=== PATIENT | female | born 1940 | race Caucasian/White ===

== ENCOUNTER → 2018-01-04 12:53 | Outpatient (CLI) | payer MEDICARE, BC, SELFPAY ==
--- NOTE | 2018-01-04 12:58 | CT_ITS ---
STUDY: CT CHEST WITHOUT CONTRAST REASON FOR EXAM: Female, 77 years old. Over read for calcium scoring. RADIATION DOSAGE (If Supplied By Facility): CTDIvol = ( 12.19 ) mGy, DLP = ( 243.79 ) mGycm TECHNIQUE: Transaxial imaging was performed without the administration of intravenous contrast material. Individualized dose optimization techniques were used for this CT. COMPARISON: None. FINDINGS: Mild degree of increased markings in the anterior aspect of the lingular segment of the left upper lobe suggestive of focal scarring. Minimal increased markings at the left lung base suggestive of mild scarring. There is no demonstrated pleural abnormality. There are calcifications of the coronary arteries. There are multiple small lymph nodes within the mediastinum, which are normal in size and morphology most compatible with reactive lymph hyperplasia. Normal hilar regions. Normal unenhanced pulmonary arteries. Normal aorta arch and descending thoracic aorta. Normal osseous structures. There are 2 small cysts in the left lobe of the liver. Small hiatal hernia. CT/CCTA Calcium Scoring IMPRESSION: Mild scarring at the left lung base and lingular segment of the left upper lobe. Coronary artery calcifications. Small hepatic cysts as well as a small hiatal hernia. Electronically Signed: Joe Posada MD at 7:58 EDT Tel [phone], Service support ,
--- NOTE | 2018-01-04 13:36 | NURSING ---
CHECKED IN FOR CALCIUM SCORING, HEART RATE 67, BP 114/36, DENIES SOB, CTA DONE PATIENT REMAINED IN NS AT HEART RATE OF 76, DENIES SOB, NO DISTRESS NOTED, WALKED OUT TO WAITING ROOM
--- NOTE | 2018-01-04 13:38 | CT_ITS ---
STUDY: CT CHEST WITHOUT CONTRAST REASON FOR EXAM: Female, 77 years old. Over read for calcium scoring. RADIATION DOSAGE (If Supplied By Facility): CTDIvol = ( 12.19 ) mGy, DLP = ( 243.79 ) mGycm TECHNIQUE: Transaxial imaging was performed without the administration of intravenous contrast material. Individualized dose optimization techniques were used for this CT. COMPARISON: None. FINDINGS: Mild degree of increased markings in the anterior aspect of the lingular segment of the left upper lobe suggestive of focal scarring. Minimal increased markings at the left lung base suggestive of mild scarring. There is no demonstrated pleural abnormality. There are calcifications of the coronary arteries. There are multiple small lymph nodes within the mediastinum, which are normal in size and morphology most compatible with reactive lymph hyperplasia. Normal hilar regions. Normal unenhanced pulmonary arteries. Normal aorta arch and descending thoracic aorta. Normal osseous structures. There are 2 small cysts in the left lobe of the liver. Small hiatal hernia. CT/Limited Chest CT w/CCTA IMPRESSION: Mild scarring at the left lung base and lingular segment of the left upper lobe. Coronary artery calcifications. Small hepatic cysts as well as a small hiatal hernia. Electronically Signed: Joe Posada MD at 7:58 EDT Tel [phone], Service support ,
--- NOTE | 2018-01-07 11:14 | CA.SCORE ---
Calcium Scoring Coronary Calcium Scoring: High-resolution computed tomographic images of the chest was performed on 01/04/2018 with particular attention paid to the coronary arteries. Images from the examination were analyzed for the presence and extent of coronary artery calcification using the coronary calcium quantification software. Patient tolerated the procedure well. Results: There was no evidence of coronary calcification noted in the left main, left anterior descending artery, left circumflex artery, and right coronary artery. The total Agatston score was 0. Conclusion: Normal calcium score of 0.
== END ==
PROVIDERS: Family Provider Internal Medicine; PCP Internal Medicine; Visit Provider Internal Medicine
DX: R06.02 Shortness of breath (principal)
CPT/HCPCS: 75571; 76380

== ENCOUNTER → 2018-02-27 09:19 | Outpatient (CLI) | payer MEDICARE, BC, SELFPAY ==
[2018-02-27 11:21] LABS: AST(SGOT) 21 U/L (15-37); Alanine Aminotransfer ALT/SGPT 32 U/L (13-56); Albumin, Serum 3.5 g/dL (3.2-5.0); Alkaline Phosphatase 77 U/L (45-117); Bilirubin, Direct 0.13 mg/dL (0.00-0.30); Cholesterol 152 mg/dL (200); Globulin 3.5 g/dL (2.2-4.2); High Density Lipoprotein 65 mg/dL; Triglycerides 71 mg/dL; Very Low Density Lipoprotein 14 mg/dL (5-40)
== END ==
PROVIDERS: Family Provider Internal Medicine; PCP Internal Medicine; Visit Provider Internal Medicine Cardiovascular Disease
DX: I10 Essential (primary) hypertension (principal); R06.09 Other forms of dyspnea; E78.5 Hyperlipidemia, unspecified; M54.32 Sciatica, left side
CPT/HCPCS: 36415; 80061; 80076; 97164

== ENCOUNTER 2018-02-27 11:00 | Outpatient (RCR) | payer MEDICARE, BC, SELFPAY ==
--- NOTE | 2018-01-01 11:34 | HP.PTEVAL_ITS ---
Patient's Visit Information RAYNA MORGAN is a 77 year old F referred to Physical Therapy by Magnolia Ortega with a diagnosis of LEFT SIDED SCIATICA. Date of Evaluation: 01/01/18 Physical Therapist: Claudia Simon - Visit Plan Frequency: 2-3x /Week Duration: 4-6 Weeks Plan: AQUATIC THERAPY FOR PAIN RELIEF, POSTURE CORRECTION/STRENGTHENING, INSTRUCTION IN APPROPRIATE BODY MECHANICS AND ACTIVITY MODIFICATIONS. DLS STARTING WITH A NEUTRAL SPINE PROGRESSING ROM TOLERATED. REBECA LE ROM, STRETCHING AND STRENGTHENING. HEP INSTRUCTION. 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 Disability: NO. Present symptoms: LEFT LOW BACK DOWN INTO THIGH, LEG AND TOES. REBECA FOOT NUMBNESS AND TINGLING. LEFT KNEE PAIN. REBECA HAND NUMBNESS. Present since: CHRONIC LOW BACK AND LLE. NEW SX'S IN REBECA HANDS STARTING ABOUT A MONTH AGO. Pain Scale: WORST 4/10, LEAST 0/10. Currently: 0/10. Commenced as a result of: NO APPARENT REASON. RELATES ONSET OF REBECA HAND SX'S TO POSSIBLY TOO MUCH YARD WORK. Symptoms at onset: LEFT THIGH. Worse: SITTING, BENDING, LIFTING. Better: TYLONOL, IBUPROFEN, WALK IT OFF. LYING DOWN MOST OF THE TIME. Disturbed sleep: YES. Previous history/Previous treatment: PHYSICAL THERAPY, HOME STRETCHES. NO CHIROPRACTOR. MASSAGE THERAPY X 2 THIS YEAR AND IT HELPED. NO INJECTIONS. NO SURGERY. Coughing/ sneezing/straining: NEGATIVE. Gait: NORMAL. Difficulty initiating urinatin: NO. Accidents: NO. Unexplained weight loss: NO. Imaging: REBECA KNEE X- RAYS SHOWING ARTHRITIS. NO SURGERY RECOMMENDED AT THIS TIME. HAS TAKEN MEDICINE FOR HER KNEES BUT HASN'T TRIED INJECTIONS YET. NO BACK OR HIP X-RAYS THAT PATIENT CAN RE-CALL. PMH: COPD, HEART CATH PENDING January, REBECA LE SWELLING RECENTLY THAT THE DOCTORS ARE TRYING TO ADDRESS. NIDDM - Objective Sitting/Standing Posture: POOR. Lordosis: REDUCED. Lateral shift: NO. Relevant shift: N/A. Active Correction of posture: NE. Other Observations: INDEP GAIT INTO PT WITHOUT AD OR GROSS DEVICATION NOTED. INDEP TRANSFER SIT TO STAND WITHOUT UE ASSIST. ABLE TO SLS X APPROX 10 SEC ON EACH LE - LEFT PROVOKES LEFT ANKLE PAIN BRIEFLY. Motor deficit: REBECA LE STRENGTH GROSSLY 5/5 WITH MMT' ING EXCEPT HIPS GRADED 4-/5. Sensory deficit: REBECA LE LIGHT TOUCH SENSATION APPEARS TO BE INTACT AND SYMMETRICAL. ROM deficit: TIGHT REBECA HS'S AND GASTROC SOLEUS COMPLEX'S. Reflexes: NT. Dural Signs: NEGATIVE REBECA LE'S. Lumbar mvmt loss: flex - MIN. ext - JONATHAN. R SG - JONATHAN. L SG - MOD. LUMBAR ROM TESTING HAS NE. Core strength: POOR. Palpation: NO ACUTE TENDERNESS WITH PALPATION OF LOWER THORACIC, LUMBAR, BUTTOCK OR HIP REGIONS. - Goals Goal 1:: DECREASE C/O BACK AND LLE SX'S Goal Time Frame: 4-6 Weeks Goal 2:: IMPROVE LIFTING, SITTING, STANDING, HOMEMAKING, YARD WORK AND SLEEP FUNCTION Goal Time Frame: 4-6 Weeks Goal 3:: INSTRUCT IN PROPHYLAXIS Goal Time Frame: 4-6 Weeks - Rehabilitation Potential Rehabilitation Potential: Good - Anticipated Interventions Patient/Client Instruction: Educate patient on: Condition, Plan of Care, Risk Factors, Benefits of Fitness Program For the Purpose of:: To improve self management Therapeutic Exercise to Include: Strength training, Body mechanics, Postural training, Flexibilty training, Dynamic Lumbar Stabilization For the Purpose of:: To decrease pain, To improve muscle performance and motor function, To improve ability of physical actions for home/community/work/leisure , To increase flexibility/ROM Thank you for the opportunity to evaluate your patient. For Medicare and Medicare HMO plans, please review the plan of care and approve it. It will need to be FAXED BACK to us at [phone] for Medicare purposes. Please let me know if there are questions or concerns regarding this plan of care. Physician Signature: Date:
--- NOTE | 2018-02-27 11:27 | HP.PTDCSUM_ITS ---
HP - PT D/C Summary It has been my pleasure to treat RAYNA MORGAN under orders from Magnolia Ortega, for the diagnosis of LEFT SIDED SCIATICA for a total of 16 visit(s). Discharge Date: 02/27/18 Please see the following information for a summary of their discharge status. - Subjective Subjective: PATIENT REPORTS HER BACK AND HER SCIATICA IS MUCH BETTER. 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 - Pain L buttock Pain Intensity (Out of 10): 0 LB Pain Intensity (Out of 10): 0 - Overall Improvement % Improvement: 100 - Objective Objective/Function: THIS PATIENT AMBULATES INDEP'LY INTO PT WITH NO AD'S OR GROSS DEVIATIONS NOTED AND DENIES PAIN. SHE IS ABLE TO INDEP'LY TRANSFER FROM SIT TO STAND WITHOUT UE ASSIST. REBECA LE LIGHT TOUCH SENSATION IS INTACT AND SYMMETRICAL. REBECA LE ROM IS WFL AND REBECA LE STRENGTH IS 5/5 WITH MMT'ING. LUMBAR MVMT LOSS: FLEX - NIL, EXT - MOD, RIGHT SG - MOD, LEFT SG - MIN. PATIENT DENIES PAIN WITH ALL TESTING TODAY. ALL PT GOALS HAVE BEEN MET. - Goals Goal 1:: DECREASE C/O BACK AND LLE SX'S Goal Progress: Goal Met Goal 2:: IMPROVE LIFTING, SITTING, STANDING, HOMEMAKING, YARD WORK AND SLEEP FUNCTION Goal Progress: Goal Met Goal 3:: INSTRUCT IN PROPHYLAXIS Goal Progress: Goal Met - Plan Plan: THIS PATIENT IS APPROPRIATE FOR DISCHARGE FROM PT TO [facility] AND SHE IS AGREEABLE. - D/C Information If there are questions or concerns regarding this patient's physical therapy, please feel free to call me at [phone]. Thank you for the referral of this patient. Sincerely, Claudia Simon
== END 2018-02-27 16:47 | disposition home or self-care (01) ==
LOC: PT 11:00
PROVIDERS: Family Provider Internal Medicine; PCP Internal Medicine; Visit Provider Internal Medicine
DX: M54.32 Sciatica, left side (principal)
CPT/HCPCS: 97110; 97113; 97162; 97164; 97530

== ENCOUNTER → 2018-03-06 10:29 | Outpatient (CLI) | payer MEDICARE, BC, SELFPAY | PROVIDERS: Family Provider Internal Medicine; PCP Internal Medicine; Visit Provider Internal Medicine Cardiovascular Disease | DX: R06.09 Other forms of dyspnea (principal); I27.29 Other secondary pulmonary hypertension; E78.5 Hyperlipidemia, unspecified | CPT/HCPCS: 93017; 93350; Q9957; A4216; C8928 ==

== ENCOUNTER → 2018-05-29 10:01 | Outpatient (CLI) | payer MEDICARE, BC, SELFPAY ==
[2018-03-19 15:17] VITALS: BMI 34.3
--- NOTE | 2018-05-29 10:04 | BI_ITS ---
MAMMOGRAPHY - BILATERAL SCREENING REASON FOR EXAM: Female, 78 years old. Routine annual screening examination. PERTINENT HISTORY: Non-contributory. TECHNIQUE: Digital bilateral breast gemma (3D mammographic acquisition) in the CC and MLO projections. 2-D mediolateral oblique (MLO) and craniocaudad (CC) views of both breasts were obtained. CAD: Full Field Digital Mammography with Computer Added Detection was performed. COMPARISON: Comparison is made with prior study dated May 28, 2017 and May 25, 2006. FINDINGS: Breast Composition: There are scattered areas of fibroglandular density. There are no dominant masses or suspicious calcifications. Stable bilateral benign appearing axillary lymph nodes. No other significant abnormalities are identified. There has been no significant change since the prior study. BI/SCREENING MAMM (CAD), BILAT IMPRESSION: Stable bilateral screening mammogram. Yearly follow-up mammogram recommended. (A) ASSESSMENT CATEGORY: BIRADS Category 2: Benign. A letter regarding these results will be sent to the patient by the facility within 30 days. Approximately 10% of breast cancers are not detected by mammography. A normal mammogram should not delay biopsy of a clinically suspicious abnormality. [id number] Electronically Signed: Joe Posada MD at 11:28 EST Tel [phone], Service support ,
== END ==
PROVIDERS: Family Provider Internal Medicine; PCP Internal Medicine; Referring Provider Internal Medicine; Visit Provider Internal Medicine
DX: Z12.31 Encounter for screening mammogram for malignant neoplasm of breast (principal)
CPT/HCPCS: 77063; 77067

== ENCOUNTER → 2018-10-16 | Outpatient (CLI) | payer MEDICARE, BC, SELFPAY ==
--- NOTE | 2018-10-16 08:53 | NM_ITS ---
CLINICAL: 78-year-old female with reported history of chronic nausea. SEMI-SOLID PHASE 99m Tc SULFUR COLLOID GASTRIC EMPTYING STUDY COMPARISON: None available FINDINGS: The patient was administered 1.1 mCi of 99m Tc sulfur colloid mixed with oatmeal and consumed per os. Image acquisitions in the anterior-posterior projections for a total of 60 minutes. There is prompt visualization of the stomach. There is no gastroesophageal reflux identified. The T1/2 linear fit was calculated to be 29.25 minutes, (Normal: 12-56 minutes). NM/Gastric Emptying Study IMPRESSION: 1. NORMAL 99m Tc sulfur colloid semi-solid phase (oatmeal) gastric emptying imaging examination. A. There is normal and preserved semi-solid phase gastric emptying compared to normal controls with maintained first order kinetics throughout all components of the examination. (Dalila et al, J Nucl Med Tech 38: 186, 2010). Electronically Signed: Matias Andino DO at 22:02 EDT Tel , Service support ,
== END | disposition home or self-care (01) ==
LOC: NM 08:51
PROVIDERS: Family Provider Internal Medicine; PCP Internal Medicine; Referring Provider Internal Medicine; Visit Provider Internal Medicine
DX: R11.0 Nausea (principal)
CPT/HCPCS: 78264; A9541

== ENCOUNTER → 2019-06-03 10:20 | Outpatient (CLI) | payer MEDICARE, BC, SELFPAY ==
--- NOTE | 2019-06-03 10:23 | BI_ITS ---
MAMMOGRAPHY - BILATERAL SCREENING 3-D TOMOSYNTHESIS REASON FOR EXAM: Female, 79 years old. Routine annual screening mammogram. PERTINENT HISTORY: No significant family history. TECHNIQUE: 2-D mammograms and 3-D Tomosynthesis of the breast (s) were performed. CAD was performed. COMPARISON: May 29, 2018, May 25, 2016 FINDINGS: The breast composition is almost entirely fat. Scattered benign calcifications are seen. No dense spiculated masses or suspicious microcalcifications are identified. No architectural distortion is identified. There is no skin thickening or retraction. There has been no significant change since the prior study. BI/SCREEN MAMM (CAD) W/ANAY BILAT IMPRESSION: No mammographic signs of malignancy. Routine yearly mammograms recommended. ASSESSMENT CATEGORY: BIRADS Category 2: Benign. A letter regarding these results will be sent to the patient by the facility within 30 days. FOLLOW UP RECOMMENDATION: Yearly follow up mammogram recommended. (A) Approximately 10% of breast cancers are not detected by mammography. A normal mammogram should not delay biopsy of a clinically suspicious abnormality. Electronically Signed: Giuseppe Pozo MD at 11:48 EST , Service support ,
--- NOTE | 2019-06-03 10:27 | BD_ITS ---
STUDY: DUAL ENERGY X-RAY ABSORPTIOMETRY / DXA REASON FOR EXAM: Female, 79 years old. The patient is postmenopausal. Loss of height. TECHNIQUE: Bone Mineral Density (BMD) measurements of lumbar spine and bilateral hips were obtained. COMPARISON: Comparison is made with prior study dated May 25, 2016. FINDINGS: Lumbar Spine (L1-L4): g/cm2 (1.034) / T-score (-1.1) / Z-score (0.7) Findings are suggestive of osteopenia with a low fracture risk. Left Femur Total: g/cm2 (0.992) / T-score (-0.1) / Z-score (1.8) Left Femoral Neck: g/cm2 (0.833) / T-score (-1.5) / Z-score (0.6) Right Femur Total: g/cm2 (0.883) / T-score (-1.0) / Z-score (0.9) Right Femoral Neck: g/cm2 (0.923) / T-score (-0.8) / Z-score (1.2) The T-Scores on the most recent prior examination were: Lumbar Spine (L1-L4): There has been worsening of bone density since the previous examination. Left Femur Total: which represents a worsening of 1%. Right Femur Total: which represents an improvement of 0.9%. BD/Dexa Bone Density Study IMPRESSION: The patient is considered osteopenic as outlined below according to World New Organization (WHO) criteria with a low fracture risk. There has been worsening of bone density since the previous examination. Reference Information: The T-score is the number of standard deviations above or below the standard which is normal for young adults at their peak bone mineral density. The World Health Organization (WHO) interprets the T-scores as follows: Above -1 Normal bone density Between -1 and -2.5 Osteopenia Equal to / or below -2.5 Osteoporosis As a practical clinical guideline, osteopenia may be graded as follows: Mild -1 through -1.5 Moderate -1.6 through -2.0 Severe -2.1 through -2.4 The Z-score is the number of standard deviations above or below age-matched controls. A Z-score of less than -1.5 would be considered abnormal. References: 1. NIH Osteoporosis and Related Bone Diseases http://www.osteo.org 2. International Society for Clinical Densitometry http://www.iscd.org 3. National Osteoporosis Foundation http://www.nof.org Electronically Signed: Joe Posada, at 8:54 EST , Service support ,
== END ==
PROVIDERS: Family Provider Internal Medicine; PCP Internal Medicine; Referring Provider Internal Medicine; Visit Provider Internal Medicine
DX: Z78.0 Asymptomatic menopausal state (principal); Z12.31 Encounter for screening mammogram for malignant neoplasm of breast
CPT/HCPCS: 77063; 77067; 77080

== ENCOUNTER → 2019-07-17 13:24 | Outpatient (CLI) | payer MEDICARE, BC, SELFPAY ==
[2018-03-19 15:17] VITALS: BMI 34.3
--- NOTE | 2019-07-17 13:29 | RAD_ITS ---
STUDY: X-RAY CHEST REASON FOR EXAM: Female, 79 years old. BRONCHITIS TECHNIQUE: PA and lateral views of the chest. COMPARISON: Limited chest CT 01/04/2018 FINDINGS: Linear scarring in the lingula and left lower lobe stable. There is no demonstrated pleural abnormality. Normal size heart. Normal mediastinum and luann. Normal visualized pulmonary arteries. Normal visualized aortic arch and descending thoracic aorta. There is demineralization of the osseous structures. Normal visualized ribs, clavicles, and shoulders. There is no demonstrated abnormality of the visualized soft tissue structures of the upper abdomen. RAD/Chest PA and Lateral IMPRESSION: 1. No airspace consolidation or pleural effusion. Electronically Signed: Dinh Espinal MD ([place]) at 15:43 EST , Service support ,
== END ==
PROVIDERS: Family Provider Internal Medicine; PCP Internal Medicine; Referring Provider Internal Medicine; Visit Provider Internal Medicine
DX: J40 Bronchitis, not specified as acute or chronic (principal)
CPT/HCPCS: 71046

== ENCOUNTER → 2020-02-24 13:41 | Outpatient (CLI) | payer MEDICARE, BC, SELFPAY ==
--- NOTE | 2020-02-24 13:45 | ECHOD_ITS ---
Reason For Study: PHTN Procedure This was a 2D Doppler, Color Flow transthoracic echocardiogram. The study was technically difficult. Exam performed in department. Left Ventricle Normal LV size. Left ventricular systolic function is normal. The estimated ejection fraction is 65 %. Stage 1 diastolic dysfunction. No regional wall motion abnormalities noted. Right Ventricle Normal RV size. Normal systolic function. Atria Normal left atrium. Normal right atrium. Mitral Valve There is mild mitral annular calcification. Mild (1+) eccentric mitral valve insufficiency. Tricuspid Valve Normal tricuspid valve. Mild tricuspid valve insufficiency. Pulmonary artery systolic pressure is 40 mmHg. Aortic Valve Trisinus/trileaflet aortic valve. Pulmonic Valve Normal pulmonic valve. Great Vessels Normal aortic root. The pulmonary artery is normal size. Normal inferior vena cava. Pericardium/Pleural No pericardial effusion. MMode/2D Measurements & Calculations LVIDd: 3.4 cm IVSd: 1.1 cm Ao root diam: 2.7 cm LVIDs: 2.0 cm LVPWd: 1.1 cm RVDd: 3.7 cm FS: 41.1 % LAV(MOD-bp): 58.4 ml LA A4 area: 19.0 cm2 LA dimension(2D): 4.4 cm LAV(MOD-bp) Indexed: 31.0 ml/m2 LAV(MOD-sp2): 56.0 ml LAV(MOD-sp4): 56.6 ml RA A4 area: 9.4 cm2 Time Measurements MV dec time: 0.30 sec Doppler Measurements & Calculations MV E max godfrey: 113.9 cm/sec Lat Peak E' Godfrey: 7.2 cm/sec Med Peak E' Godfrey: 6.5 cm/sec MV A max godfrey: 158.6 cm/sec E/E' lat: 15.8 E/E' med: 17.6 MV E/A: 0.72 MV V2 max: 152.2 cm/sec Ao V2 max: 158.2 cm/sec LV V1 max: 136.3 cm/sec MV max P.3 mmHg Ao max P.0 mmHg LV V1 max P.4 mmHg MV V2 mean: 104.4 cm/sec MV mean P.7 mmHg MV V2 VTI: 30.8 cm PA V2 max: 104.6 cm/sec TR max godfrey: 296.2 cm/sec MV P1/2t-pr_phl: 64.5 msec TR max P.1 mmHg Interpretation Summary Normal LV size. Left ventricular systolic function is normal. The estimated ejection fraction is 65 %. Stage 1 diastolic dysfunction. There is mild mitral annular calcification. Ordering Physician: Juan Jose Kramer Referring Physician: PEGGY OTERO Performed By: Marlene Breaux RDCS, RVT
== END ==
PROVIDERS: PCP Internal Medicine; Referring Provider Internal Medicine Pulmonary Disease; Visit Provider Internal Medicine Pulmonary Disease
DX: I27.20 Pulmonary hypertension, unspecified (principal)
CPT/HCPCS: 93306

== ENCOUNTER → 2020-04-01 12:49 | Outpatient (CLI) | payer MEDICARE, BC, SELFPAY ==
--- NOTE | 2020-04-01 12:50 | VDLE_ITS ---
Reason For Study: venous insufficicncy, swelling RIGHT LEFT CFV is compressible, spontaneous, phasic, CFV is compressible, spontaneous, phasic, competent and demonstrates normal competent, and demonstrates normal augmentation. augmentation. FV is compressible, spontaneous, phasic, FV is compressible, spontaneous, phasic, competent and demonstrates normal competent and demonstrates normal augmentation. augmentation. POP V is compressible, spontaneous, phasic, POP V is compressible, spontaneous, phasic, competent and demonstrates normal competent and demonstrates normal augmentation. augmentation. T/P Trunk is compressible. T/P Trunk is compressible. PTV is compressible. PTV is compressible. RT PerV is compressible. LT PerV is compressible. SFJ is competent and measures .63 x .74 cm. SFJ is competent and measures .67 x .69 cm. GSV proximal thigh measures .35 x .4 cm. GSV proximal thigh measures .26 x .24 cm. GSV at knee measures .3 x .3 cm. GSV at knee measures .22 x .26 cm. GSV INCOMPETENT throughout for greater than GSV above knee is competent. 0.5 seconds. GSV below knee is INCOMPETENT for greater SSV proximal calf is competent and than 0.5 seconds. measures .36 x .36 cm. SSV proximal calf is competent and Procedure measures .23 x .25 cm. Exam performed in department. The exam was diagnostic. Interpretation Summary Deep veins of the lower extremities are bilaterally patent and compressible segmentally. There is no evidence of deep vein thrombosis on either side. Valvular competence appears intact within the proximal deep venous systems bilaterally. The great saphenous veins appear bilaterally patent and compressible segmentally. Sapheno-femoral junctions are bilaterally competent . The right great saphenous vein appears segmentally incompetent. The left great saphenous vein appears competent above the knee. The left great saphenous vein appears incompetent below the knee. Small saphenous veins are patent and competent bilaterally. Ordering Physician: Ej Pérez Performed By: Tremaine Galarza, RVT
== END ==
PROVIDERS: PCP Internal Medicine; Referring Provider Podiatrist; Visit Provider Podiatrist
DX: I87.2 Venous insufficiency (chronic) (peripheral) (principal); R60.0 Localized edema
CPT/HCPCS: 93970

== ENCOUNTER → 2020-04-05 09:25 | Outpatient (CLI) | payer MEDICARE, BC, SELFPAY ==
[2018-03-19 15:17] VITALS: BMI 34.3
[2020-04-05 10:42] LABS: Vitamin B12 877 pg/mL (211-911)
== END ==
PROVIDERS: PCP Internal Medicine; Referring Provider Podiatrist; Visit Provider Podiatrist
DX: G57.93 Unspecified mononeuropathy of bilateral lower limbs (principal)
CPT/HCPCS: 36415; 82607; 82746

== ENCOUNTER → 2020-06-09 12:16 | Outpatient (CLI) | payer MEDICARE, BC, SELFPAY ==
[2018-03-19 15:17] VITALS: BMI 34.3
--- NOTE | 2020-06-09 12:17 | BI_ITS ---
MAMMOGRAPHY - BILATERAL SCREENING REASON FOR EXAM: Female, 80 years old. Routine annual screening examination. PERTINENT HISTORY: Non-contributory. TECHNIQUE: Digital bilateral breast anay (3D mammographic acquisition) in the CC and MLO projections. 2-D mediolateral oblique (MLO) and craniocaudad (CC) views of both breasts were obtained. CAD: Full Field Digital Mammography with Computer Added Detection was performed. COMPARISON: Comparison is made with prior study dated 06/03/2019 and 05/29/2018. FINDINGS: Breast Composition: There are scattered areas of fibroglandular density. There are no dominant masses or suspicious calcifications. Stable benign-appearing bilateral axillary lymph nodes. No other significant abnormalities are identified. There has been no significant change since the prior study. BI/SCREEN MAMM (CAD) W/ANAY BILAT IMPRESSION: Stable bilateral screening mammogram. Yearly follow-up mammogram recommended. (A) ASSESSMENT CATEGORY: BIRADS Category 2: Benign. A letter regarding these results will be sent to the patient by the facility within 30 days. Approximately 10% of breast cancers are not detected by mammography. A normal mammogram should not delay biopsy of a clinically suspicious abnormality. [id number] Electronically Signed: Joe Posada, at 13:07 EST , Service support ,
== END ==
PROVIDERS: PCP Internal Medicine; Referring Provider Internal Medicine; Visit Provider Internal Medicine
DX: Z12.31 Encounter for screening mammogram for malignant neoplasm of breast (principal)
CPT/HCPCS: 77063; 77067

== ENCOUNTER 2021-02-17 15:19 | Outpatient (CLI) | payer MEDICARE, BC, SELFPAY ==
[2021-02-17 11:51] VITALS: BMI 34.3
[2021-02-17 15:55] VITALS: BP 132/63; PULSE 86; RESP 16; TEMP 36.7; O2SAT 97; BMI 29.8
[2021-02-17] MEDS: 0.9% Saline Lock 10 ML Syringe IV (16:09)
[2021-02-17 16:31] VITALS: BP 125/60; PULSE 73; RESP 18; TEMP 36.7; O2SAT 99
[2021-02-17 17:01] VITALS: BP 124/66; PULSE 76; RESP 16; TEMP 36.8; O2SAT 97
[2021-02-17 17:31] VITALS: BP 110/61; PULSE 76; RESP 16; TEMP 36.6; O2SAT 97
== END 2021-02-17 17:40 | disposition home or self-care (01) ==
LOC: ICUOUT 15:19 → ICU 15:20
PROVIDERS: PCP Internal Medicine; Visit Provider Nurse Practitioner Acute Care
DX: U07.1 COVID-19 (principal); Z23 Encounter for immunization
CPT/HCPCS: J7050; M0243; A4216; Q0244

== ENCOUNTER 2021-04-22 11:00 | Outpatient (RCR) | payer MEDICARE, BC, SELFPAY ==
--- NOTE | 2021-04-04 11:58 | HP.PTEVAL ---
Patient's Visit Information RAYNA MORGAN is a 81 year old F referred to Physical Therapy by Dr. Magnolia Ortega MD with a diagnosis of LBP, L SCIATICA. Date of Evaluation: 04/04/21 Physical Therapist: Claudia Simon, PT, Cert MDT - Visit Plan Frequency: 2-3x /Week Duration: 4-6 Weeks Plan: US, POSTURE CORRECTION/STRENGTHENING, INSTRUCTION IN APPROPRIATE BODY MECHANICS AND ACTIVITY MODIFICATIONS. DLS STARTING WITH A NEUTRAL SPINE PROGRESSING ROM TOLERATED. REBECA LE ROM, STRETCHING AND STRENGTHENING. HEP INSTRUCTION. CONSIDER AQUATIC THERAPY IF NOT RESONDING. PATIENT AGREEABLE. - Subjective Work/Leisure: RETIRED. DOES A LOT OF SEWING. ALSO DOES SOME YARD WORK. Present symptoms: REBECA LOW BACK PAIN LEFT > RIGHT. LLE PAIN. PATIENT DENIES NUMBNESS AND TINGLING EXCEPT REBECA FOOT NEUROPATHY. Present since: FLARE UP AGAIN ABOUT A YEAR AGO. Pain Scale: WORST 5/10, LEAST 0/10. Currently: 07/18. Commenced as a result of: NO APPARENT REASON OTHER THAN PROBABLY LIFTING BAGS OF MULCH AND OTHER HEAVY YARD WORK. Symptoms at onset: L LE. Worse: SITTING AT THE WRONG ANKLE, PROLONGED SITTING. Better: CHANGE POSITION/GET UP. Disturbed sleep: SOMETIMES BUT NOT A LOT. Previous history/Previous treatment: AQUATIC THERPAY HERE AT [facility] IN 2018 FOR THE SAME THING AND SX'S RESOLVED WITH THERAPY UNTIL ABOUT A YEAR AGO. ALSO DOES MASSAGE. NO BACK SURGERY. NO JACOB'S. NO CHIROPRACTOR. Treatment this episode: PT CONSULT. Coughing/sneezing/straining: POSITIVE. Gait: WALKING SLOWER BUT PATIENT RELATES IT TO HER AGE. Difficulty initiating urination: NO. Accidents: NO. Unexplained weight loss: NO. Imaging: NONE RECENT. PMH/Recent major surgery: RA. COPD. COVID 19 DX FEB 15 2021 - TREATED WITH ONE INFUSION - PATIENT FEELS RECOVERED. NIDDM. - Objective Sitting/Standing Posture: POOR. Lordosis: REDUCED. Lateral shift: NO. Relevant shift: N/A. Active Correction of posture: NE. Other Observations: INDEP GAIT INTO PT WITHOUT AD OR GROSS DEVICATION NOTED. INDEP TRANSFER SIT TO STAND WITHOUT UE ASSIST. ABLE TO SLS X APPROX 10 SEC ON EACH LE - LEFT PROVOKES LEFT ANKLE PAIN BRIEFLY. Motor deficit: REBECA LE STRENGTH GROSSLY 5/5 WITH MMT'ING EXCEPT HIPS GRADED 4/5. Sensory deficit: REBECA LE LIGHT TOUCH SENSATION APPEARS TO BE INTACT AND SYMMETRICAL. ROM deficit: TIGHT REBECA HS'S AND GASTROC SOLEUS COMPLEX'S. Reflexes: NT. Dural Signs: NEGATIVE REBECA LE'S. Lumbar mvmt loss: flex - MIN. ext - JONATHAN. R SG - JONATHAN. L SG - MOD. LUMBAR ROM TESTING HAS NE. Core strength: POOR. - Balance/Special Test Scores Oswestry Low Back Score: 10 - Goals Goal 1:: DECREASE C/O LOW BACK AND LLE SX'S. Goal Time Frame: 4-6 Weeks Goal 2:: IMPROVE LIFTING, SITTING, SLEEP, SOCIAL LIFE AND TRAVEL FUNCTION Goal Time Frame: 4-6 Weeks Goal 3:: INSTRUCT IN PROPHYLAXIS Goal Time Frame: 4-6 Weeks - Anticipated Interventions Patient/Client Instruction: Educate patient on: Condition, Plan of Care, Risk Factors For the Purpose of:: To improve self management Therapeutic Exercise to Include: Strength training, Body mechanics, Postural training, Flexibilty training, Neuromotor development, In an aquatic setting, Dynamic Lumbar Stabilization For the Purpose of:: To decrease pain, To improve muscle performance and motor function, To increase tolerance to activity/condition/position, To improve ability of physical actions for home/community/work/leisure Cryotherapy (ice pack, ice massage): Yes Thermo therapy (hot pack): Yes Ultrasound (thermal/non thermal): Yes For the Purpose of:: To decrease pain, To improve nutrient delivery to tissue Thank you for the opportunity to evaluate your patient. For Medicare and Medicare HMO plans, please review the plan of care and approve it. It will need to be FAXED BACK to us at [phone] for Medicare purposes. For Medicare only, by signing this I certify the plan of care. Please let me know if there are questions or concerns regarding this plan of care. Physician Signature: Date:
--- NOTE | 2021-04-22 12:08 | HP.PTDCSUM ---
It has been my pleasure to treat RAYNA MORGAN referred by Dr. Mangolia Ortega MD, with the diagnosis of LBP, L SCIATICA for a total of 6 visit(s). Discharge Date: 04/22/21 Please see the following information for a summary of their discharge status. Subjective: PATIENT REPORTS SHE STOOD UP LAST NIGHT AND FELT LOW BACK PAIN AND ALSO THIS MORNING BUT IT WENT AWAY QUICKLY LOW BACK Pain Intensity (Out of 10): 1 % Improvement: 100 Objective/Function: PATIENT WAS SEEN TODAY FOR RE-ASSESSMENT OF PROGRESS TOWARD THE SET PT GOALS AND THE NEED FOR FURTHER PHYSICAL THERAPY VS READINESS FOR DISCHARGE. ALL GOALS HAVE BEEN MET AND PATIENT IS APPROPRIATE FOR DISCHARGE AND PHYSICIAN FOLLOW UP NEEDED. SHE IS INDEP WITH A HEP AND SHE IS AGREEABLE TO DISCHARGE. Goal 1:: DECREASE C/O LOW BACK AND LLE SX'S. Goal Progress: Goal Met Goal 2:: IMPROVE LIFTING, SITTING, SLEEP, SOCIAL LIFE AND TRAVEL FUNCTION Goal Progress: Goal Met Goal 3:: INSTRUCT IN PROPHYLAXIS Goal Progress: Goal Met Plan: D/C TO HEP. If there are questions or concerns regarding this patient's physical therapy, please feel free to call me at [phone]. Thank you for the referral of this patient. Sincerely, Claudia Simon, PT, Cert MDT Balance/Gait/Functional tests - Balance/Special Test Scores Oswestry Low Back Score: 7
== END 2021-04-22 12:45 | disposition home or self-care (01) ==
LOC: PT 11:00
PROVIDERS: PCP Internal Medicine; Referring Provider Internal Medicine; Visit Provider Internal Medicine
DX: M54.42 Lumbago with sciatica, left side (principal)
CPT/HCPCS: 97035; 97112; 97162; 97530

== ENCOUNTER → 2021-06-24 13:00 | Outpatient (CLI) | payer MEDICARE, BC, SELFPAY ==
--- NOTE | 2021-06-24 13:04 | BI_ITS ---
MAMMOGRAPHY - BILATERAL SCREENING REASON FOR EXAM: Female, 81 years old. Routine annual screening examination. PERTINENT HISTORY: Non-contributory. TECHNIQUE: Digital bilateral breast anay (3D mammographic acquisition) in the CC and MLO projections. 2-D mediolateral oblique (MLO) and craniocaudad (CC) views of both breasts were obtained. CAD: Full Field Digital Mammography with Computer Added Detection was performed. COMPARISON: Comparison is made with prior study dated 06/09/2020 and 06/03/2019. FINDINGS: Breast Composition: There are scattered areas of fibroglandular density. There are no dominant masses or suspicious calcifications. Stable benign-appearing bilateral axillary lymph nodes. No other significant abnormalities are identified. There has been no significant change since the prior study. BI/SCRN MAMM (CAD)W/ANAY BILAT IMPRESSION: Stable bilateral screening mammogram. Yearly follow-up mammogram recommended. (A) ASSESSMENT CATEGORY: BIRADS Category 2: Benign. A letter regarding these results will be sent to the patient by the facility within 30 days. Approximately 10% of breast cancers are not detected by mammography. A normal mammogram should not delay biopsy of a clinically suspicious abnormality. [id number] Electronically Signed: Joe Posada MD at 14:26 EST , Service support ,
== END ==
PROVIDERS: PCP Internal Medicine; Referring Provider Internal Medicine; Visit Provider Internal Medicine
DX: Z12.31 Encounter for screening mammogram for malignant neoplasm of breast (principal)
CPT/HCPCS: 77063; 77067

== ENCOUNTER 2021-07-20 14:44 | Outpatient (CLI) | payer MEDICARE, BC, SELFPAY ==
--- NOTE | 2021-07-20 14:47 | CT_ITS ---
STUDY: CT ABDOMEN AND PELVIS WITH CONTRAST REASON FOR EXAM: Female, 81 years old. LLQ ABD PAIN RADIATION DOSAGE (If Supplied By Facility): CTDIvol = ( 16.54 ) mGy, DLP = ( 930.76 ) mGycm TECHNIQUE: Transaxial images were obtained from the dome of the diaphragm to the symphysis pubis with oral contrast. Oral and amp; IV Readi-CAT and amp; 100mL Isovue-300 was administered. Sagittal and coronal images were reconstructed. Individualized dose optimization techniques were used for this CT. COMPARISON: None. FINDINGS: The visualized lung bases are unremarkable. Coronary artery calcification. There is a 1.5 semi a cyst in the anterior peripheral aspect of the left lobe of the liver. There is a 1.3 cm cyst in the central upper aspect of the right lobe of the liver. There is a 1 cm cyst in the peripheral inferior aspect of the right lobe of the liver. Normal gallbladder and extrahepatic biliary system. Normal spleen. There is diffuse atrophy of the pancreas. Normal bilateral adrenal glands. Normal right kidney. Normal left kidney. There is a small hiatal hernia. Normal small intestine. There are multiple colonic diverticula consistent with diverticulosis. The appendix is visualized and appears normal. There is diffuse atherosclerotic calcification of the abdominal aorta and its major visceral branches, without a demonstrated aneurysm. Normal inferior vena cava. Normal retroperitoneum. Normal urinary bladder. There is absence of the uterus consistent with a prior hysterectomy. Normal abdominal wall. There are diffuse degenerative changes of the visualized lumbar spine. CT/Abdomen/Pelvis WITH Contrast IMPRESSION: Sigmoid diverticulosis with no radiographic evidence of diverticulitis. Hepatic cysts. Hiatal hernia. Electronically Signed: Joe Posada MD at 15:39 EST , Service support ,
[2021-07-20 15:16] LABS: CREATININE FINGERSTICK 0.7 mg/dL (0.55-1.02); EGFR FINGERSTICK > 60.0000 mL/min (>60)
== END 2021-07-20 23:59 | disposition short-term general hospital (02) ==
LOC: CT 14:45
PROVIDERS: PCP Internal Medicine; Referring Provider Internal Medicine; Visit Provider Internal Medicine
DX: R10.12 Left upper quadrant pain (principal)
CPT/HCPCS: 74177; Q9967

== ENCOUNTER 2021-08-04 10:27 | Outpatient (CLI) | payer MEDICARE, BC, SELFPAY ==
--- NOTE | 2021-08-04 10:31 | BD_ITS ---
STUDY: DUAL ENERGY X-RAY ABSORPTIOMETRY / DXA REASON FOR EXAM: Female, 81 years old. [id number]. Patient is postmenopausal. TECHNIQUE: Bone Mineral Density (BMD) measurements of lumbar spine and bilateral hips were obtained. COMPARISON: Comparison is made with prior study 06/03/2019. FINDINGS: Lumbar Spine (L1-L4): g/cm2 (1.055) / T-score (0.1) / Z-score (2.8) Findings are suggestive of normal bone density with a low fracture risk. Left Femur Total: g/cm2 (0.941) / T-score (0.0) / Z-score (2.1) Left Femoral Neck: g/cm2 (0.709) / T-score (-1.3) / Z-score (1.1) Right Femur Total: g/cm2 (0.810) / T-score (-1.1) / Z-score (1.0) Right Femoral Neck: g/cm2 (0.722) / T-score (-1.1) / Z-score (1.2) The T-Scores on the most recent prior examination were: Lumbar Spine (L1-L4): There has been improvement of bone density since the previous examination. Left Femur Total: which represents an improvement of 1.6%. Right Femur Total: which represents a worsening of 1.2%. BD/Dexa Bone Density Study IMPRESSION: The patient is considered osteopenic as outlined below according to World New Organization (WHO) criteria with a low fracture risk. There has been improvement of bone density since the previous examination. Reference Information: The T-score is the number of standard deviations above or below the standard which is normal for young adults at their peak bone mineral density. The World Health Organization (WHO) interprets the T-scores as follows: Above -1 Normal bone density Between -1 and -2.5 Osteopenia Equal to / or below -2.5 Osteoporosis As a practical clinical guideline, osteopenia may be graded as follows: Mild -1 through -1.5 Moderate -1.6 through -2.0 Severe -2.1 through -2.4 The Z-score is the number of standard deviations above or below age-matched controls. A Z-score of less than -1.5 would be considered abnormal. References: 1. NIH Osteoporosis and Related Bone Diseases www osteo.org 2. International Society for Clinical Densitometry www iscd.org 3. National Osteoporosis Foundation www nof.org Electronically Signed: Joe Posada MD at 15:26 EST ,
== END 2021-08-04 23:59 | disposition short-term general hospital (02) ==
LOC: OPBD 10:28
PROVIDERS: PCP Internal Medicine; Referring Provider Internal Medicine; Visit Provider Internal Medicine
DX: Z78.0 Asymptomatic menopausal state (principal)
CPT/HCPCS: 77080

== ENCOUNTER → 2022-02-10 | Outpatient (CLI) | payer MEDICARE, BC, SELFPAY ==
--- NOTE | 2022-02-10 12:45 | STRESSREP ---
Stress Test Report Exercise myocardial perfusion stress test. 81-year-old lady with a history of chest pain. Stress protocol: Resting EKG demonstrates normal sinus rhythm with a rate of 81 bpm normal intervals are noted resting blood pressure is 142/78 mmHg. The patient exercised according to the regular Naveen protocol for total duration of 3 minutes and 30 seconds. The maximum heart rate attained was 148 bpm which was 105% of max impacted heart rate the maximum workload was 4.6 metabolic equivalents. At rest there were no ST or T wave changes noted to suggest ischemia and at peak exercise upsloping ST changes were noted which did not meet the criteria for ischemia. No clinical angina was noted nonspecific changes were noted occasional premature ventricular complexes were present. The peak blood pressure was 198/70 mmHg. Myocardial perfusion protocol. 11.9 mCi of technetium 99m sestamibi was injected at rest. The patient exercised according to regular Naveen protocol and at peak exercise 33.6 mCi of technetium 99m sestamibi was injected stress images were obtained stress and rest images were reconstructed and compared in the short axis vertical long and horizontal long axis. Gated images were also obtained. Perfusion SPECT analysis: Review of the stress images demonstrate normal uptake of tracer noted in all areas of the myocardium. The resting images similarly demonstrate normal uptake of tracer noted in all areas of the myocardium. No areas of reversibility are noted to suggest ischemia and no previous infarct is noted. Gated SPECT analysis: The gated ejection fraction is 89%. Conclusion: Normal exercise myocardial perfusion stress test at a low workload. The low workload may affect sensitivity for detection of ischemia. Preserved ejection fraction.
== END | disposition home or self-care (01) ==
LOC: CVS 07:06
PROVIDERS: PCP Internal Medicine; Referring Provider Internal Medicine; Visit Provider Internal Medicine
DX: R07.89 Other chest pain (principal)
CPT/HCPCS: 78452; 93017; A9500; A4216

== ENCOUNTER → 2022-02-16 | Outpatient (CLI) | payer MEDICARE, BC, SELFPAY ==
[2022-02-16 15:01] LABS: Basophil# 0.13 X10^3/uL; Basophil% 1.4 % (0-1); Eosinophil# 0.77 X10^3/uL; Eosinophils% 8.4 % (0-5); Hematocrit 39.5 % (37-47); Hemoglobin 12.4 g/dL (12.0-15.0); Lymphocyte % 32.8 % (19-41); Mean Corp Hgb Conc 31.4 g/dL (32-36); Mean Corpuscular Hgb 27.4 pg (27.0-32.0); Mean Corpuscular Volume 87.2 fL (81-99); Mean Platelet Vol. 10.2 fl (6.2-12.0); Monocyte# 1.22 X10^3/uL; Monocyte% 13.3 % (0-10); NRBC Flagged by Analyzer 0 % (0-5); Neutrophil # 4.03 X10^3/uL (2.7-7.7); Platelet Count 215 K/mm3 (150-450); RBC Distribution Width CV 13.6 % (11.6-14.6); RBC Distribution Width SD 43.1 fl (35.1-43.9); Red Blood Count 4.53 M/mm3 (4.2-5.4); White Blood Count 9.2 K/mm3 (4.4-11.0)
== END | disposition home or self-care (01) ==
LOC: MTLAB 13:23
PROVIDERS: PCP Internal Medicine; Referring Provider Internal Medicine Pulmonary Disease; Visit Provider Internal Medicine Pulmonary Disease
DX: J30.1 Allergic rhinitis due to pollen (principal)
CPT/HCPCS: 36415; 85025

== ENCOUNTER → 2022-05-18 | Outpatient (CLI) | payer MEDICARE, BC, SELFPAY | END | disposition home or self-care (01) | LOC: PSN 09:42 | PROVIDERS: PCP Internal Medicine; Visit Provider Internal Medicine | DX: I49.3 Ventricular premature depolarization (principal) | CPT/HCPCS: 93225; 93226 ==

== ENCOUNTER → 2022-06-14 | Outpatient (CLI) | payer MEDICARE, BC, SELFPAY ==
--- NOTE | 2022-06-14 09:57 | ECHOD_ITS ---
Reason For Study: BTEZY, HTN Procedure This was a 2D Doppler, Color Flow transthoracic echocardiogram. Exam performed in department. Left Ventricle Normal LV size. Left ventricular systolic function is normal. Stage 1 diastolic dysfunction. The estimated ejection fraction is 60 %. No regional wall motion abnormalities noted. Right Ventricle Normal RV size. Normal systolic function. Atria The left atrium is moderately enlarged. Normal right atrium. Mitral Valve There is mild mitral annular calcification. Mild (1+) eccentric mitral valve insufficiency. Tricuspid Valve Normal tricuspid valve. Mild (1+) tricuspid valve insufficiency. Pulmonary artery systolic pressure is 36 mmHg. Aortic Valve Trisinus/trileaflet aortic valve. Pulmonic Valve Normal pulmonic valve. Great Vessels Normal aortic root. The pulmonary artery is normal size. Normal inferior vena cava. Pericardium/Pleural No pericardial effusion. MMode/2D Measurements & Calculations LVIDd: 4.1 cm IVSd: 0.90 cm Ao root diam: 2.6 cm LVIDs: 2.5 cm LVPWd: 1.1 cm RVDd: 3.2 cm FS: 39.6 % LAV(MOD-bp): 93.2 ml LA A4 area: 25.6 cm2 LA dimension(2D): 4.5 cm LAV(MOD-bp) Indexed: 50.3 ml/m2 LAV(MOD-sp2): 92.6 ml LAV(MOD-sp4): 93.9 ml RA A4 area: 13.2 cm2 Time Measurements MV dec time: 0.27 sec Doppler Measurements & Calculations MV E max godfrey: 106.9 cm/sec Lat Peak E' Godfrey: 6.9 cm/sec Med Peak E' Godfrey: 7.6 cm/sec MV A max godfrey: 117.9 cm/sec E/E' lat: 15.6 E/E' med: 14.2 MV E/A: 0.91 MV dec slope: 395.6 cm/sec2 Ao V2 max: 131.0 cm/sec LV V1 max: 84.6 cm/sec Ao max P.9 mmHg LV V1 max P.9 mmHg Ao V2 mean: 92.4 cm/sec LV V1 mean P.5 mmHg Ao mean P.9 mmHg LV V1 mean: 58.3 cm/sec Ao V2 VTI: 31.6 cm LV V1 VTI: 19.1 cm AV (velocity ratio): 0.60 PA V2 max: 84.9 cm/sec TR max godfrey: 283.3 cm/sec TR max P.1 mmHg ECHO/Echo Complete Interpretation Summary The left atrium is moderately enlarged. Normal LV size. Left ventricular systolic function is normal. Mild (1+) eccentric mitral valve insufficiency. Stage 1 diastolic dysfunction. Pulmonary artery systolic pressure is 36 mmHg. The estimated ejection fraction is 60 %. Ordering Physician: Lenard Martinez Referring Physician: Magnolia Ortega Performed By: Lisa Kwan, EDGAR, RVT
== END | disposition home or self-care (01) ==
PROVIDERS: PCP Internal Medicine; Referring Provider Internal Medicine Cardiovascular Disease; Visit Provider Internal Medicine Cardiovascular Disease
DX: G47.33 Obstructive sleep apnea (adult) (pediatric) (principal); I27.29 Other secondary pulmonary hypertension; I10 Essential (primary) hypertension; E78.5 Hyperlipidemia, unspecified; I49.3 Ventricular premature depolarization
CPT/HCPCS: 93306

== ENCOUNTER 2022-06-15 12:30 | Outpatient (RCR) | payer MEDICARE, BC, SELFPAY ==
--- NOTE | 2022-05-01 18:29 | HP.PTEVAL ---
Patient's Visit Information RAYNA MORGAN is a 82 year old F referred to Physical Therapy by Dr. Magnolia Ortega MD with a diagnosis of RIGHT HIP PAIN ,BURSITIS. Date of Evaluation: 05/01/22 Physical Therapist: Farzad Hudson, PT, Cert MDT, OCS - Visit Plan Frequency: 2x /Week Duration: 4 Weeks Plan: PT INTERVETIONS STM /STICK TO I -T BAND ,US /ICE LATERAL HIP ,STRETCHING IT BAND/PIRIFORMIS AND PROGRESS TO STRENGTHENING TO HPS - Subjective This 82 y/o female presents to physical therapy with hip pain . Patient has symptoms lateral thigh for ~ 3 months ago but has been a problem many years . Patient seen DR and did cortisone in only helped left leg . Recommended PT ,then possible MRI. Aggravating elevations for sitting , housework developed soreness . Alleviating factors walking ,standing and sitting. Patient symptoms affects sleeping. Denies paresthesia/tingling except in feet during sitting. Coughing/sneezing -. Bowel/bladder -. Patient has received prior PT to [facility]. Patient has no trauma. Patient condition affects QOL . PMH: COPD ,RA. SOCAIL: . VOCATION: retired - Pain Bilateral Back Pain Intensity (Out of 10): 5 Pain Intensity Range: 10 Bilateral Lower Extremity Pain Intensity (Out of 10): 0 Comment: lateral hips - Objective POSTURE: mild forward posture. GAIT: antalgic gait. NEURO: occasionally paresthesia in feet from neuropathy ,reflexes L3-4-4-5,L5-S1 1/3. PALAPTION: tender IT BAND and greater trochanter. FLEXABILITY: hamstrings WFL ,piriformis min tight. LUMBAR ROM: flexion min tight ,extension mod tight ,side glides min tight. MMT: quads/hams 4/5 ,hip flexion 4-/5, hip abduction 4-/5 ,ankle 4/5 - Special Tests L/S Slump test left side: Negative L/S Slump test right side: Negative L/S Left Straight Leg Raise: Negative L/S Right Straight Leg Raise: Negative Lumbar Standing: Flexion - Mechanical Response: No effect Lumbar Standing: Flexion - Symptoms During Testing: No effect Lumbar Standing: Flexion - Symptoms After Testing: No effect Lumbar Standing: Extension - Mechanical Response: No effect Lumbar Standing: Extension - Symptoms During Testing: Increases Lumbar Standing: Extension - Symptoms After Testing: No worse Comments:: back Lumbar Standing: Right Side Glides - Mechanical Response: No effect Lumbar Standing: Right Side Hinton - Symptoms During Testing: No effect Lumbar Standing: Right Side Hinton - Symptoms After Testing: No effect Lumbar Standing: Left Side Hinton - Mechanical Response: No effect Lumbar Standing: Left Side Hinton - Symptoms During Testing: No effect Lumbar Standing: Left Side Hinton - Symptoms After Testing: No effect R Hip Scour: Negative R Hip Quadrant - Intraarticular Pathology: Negative R Hip MEMO - Intraarticular Pathology: Negative R Hip Trendelenberg - Glut Medius: Negative R Hip Charito - IT Band: Positive L Hip Scour: Negative L Hip Quadrant - Intraarticular Pathology: Negative L Hip MEMO - Intraarticular Pathology: Negative L Hip Trendelenberg - Glut Medius: Negative L Hip Charito - IT Band: Positive - Balance/Special Test Scores Lower Extremity Functional Score: 37 - Goals Goal 1:: I with HEP for hips Goal Time Frame: 4-6 Weeks Goal 2:: Patient to have min pain with palpation IT band and greater trochanter to lay on side . Goal Time Frame: 4-6 Weeks Goal 3:: Patient to demonstrate 50 % improvement with decrease pain and improve function Goal Time Frame: 4-6 Weeks Goal 4:: Patient to improve LFES score by 5-10 points to improve QOL and function. Goal Time Frame: 4-6 Weeks - Rehabilitation Potential Physical Therapy Diagnosis: Patient has bilateral hip pain with greater trochanteric bursitis and I T band syndrome with pain ,palpation impairs function and ADLS Rehabilitation Potential: Good - Anticipated Interventions Patient/Client Instruction: Educate patient on: Condition, Plan of Care For the Purpose of:: To decrease pain, To increase ROM, To improve nutrient delivery to tissue, To increase oxygenation perfusion, To improve muscle performance and motor function, To increase tolerance to activity/condition/position, To improve ability of physical actions for home/community/work/leisure, To improve health of tissue, To decrease soft tissue restriction, To increase flexibility/ROM, To prevent re-injury, To improve tolerance to ADL's Therapeutic Exercise to Include: Strength training, Endurance training, Balance training, Postural training, Flexibilty training, Active ROM, Dynamic Lumbar Stabilization Comment: HIPS For the Purpose of:: To decrease pain, To increase ROM, To improve muscle performance and motor function, To improve ability to perform ADL's, To increase tolerance to activity/condition/position, To improve performance and independence with ADL's, To improve ability of physical actions for home/community/work/leisure, To improve health of tissue, To decrease soft tissue restriction, To increase flexibility/ROM, To improve tolerance to ADL's Manual Therapy Techniques to Include: Soft tissue mobilization Comment: STICK IT BAND For the Purpose of:: To decrease pain, To increase ROM, To improve nutrient delivery to tissue, To increase oxygenation perfusion, To improve health of tissue, To decrease soft tissue restriction TENS: Yes IF ES: Yes Cryotherapy (ice pack, ice massage): Yes Thermo therapy (hot pack): Yes Ultrasound (thermal/non thermal): Yes For the Purpose of:: To decrease pain, To increase ROM, To improve nutrient delivery to tissue, To increase oxygenation perfusion, To improve health of tissue, To decrease soft tissue restriction Thank you for the opportunity to evaluate your patient. For Medicare and Medicare HMO plans, please review the plan of care and approve it. It will need to be FAXED BACK to us at [phone] for Medicare purposes. For Medicare only, by signing this I certify the plan of care. Please let me know if there are questions or concerns regarding this plan of care. Physician Signature: Date:
--- NOTE | 2022-06-15 12:49 | HP.PTDCSUM_ITS ---
It has been my pleasure to treat RAYNA MORGAN referred by Dr. Magnolia Ortega MD, with the diagnosis of RIGHT HIP PAIN ,BURSITIS for a total of 8 visit(s). Discharge Date: 06/15/22 Please see the following information for a summary of their discharge status. Subjective: Doing well no pain . Bilateral Back Pain Intensity (Out of 10): 0 Bilateral Lower Extremity Pain Intensity (Out of 10): 0 % Improvement: 90 Objective/Function: POSTURE: mild foward posture. GAIT: reciprocal pattern. PALAPTION: absent IT band. MMT: hip abd/flexion/quads/hams 4/5 Goal 1:: I with HEP for hips Goal Progress: Goal Met Goal 2:: Patient to have min pain with palpation IT band and greater trochanter to lay on side . Goal Progress: Goal Met Goal 3:: Patient to demonstrate 50 % improvement with decrease pain and improve function Goal 4:: Patient to improve LFES score by 5-10 points to improve QOL and fun ction. Goal Progress: Goal Met Plan: D/C Discharge Comments: HEP If there are questions or concerns regarding this patient's physical therapy, please feel free to call me at [phone]. Thank you for the referral of this patient. Sincerely, Farzad Hudson, PT, Cert MDT, OCS Balance/Gait/Functional tests - Balance/Special Test Scores Lower Extremity Functional Score: 58
== END 2022-06-15 19:00 | disposition home or self-care (01) ==
LOC: PT 12:30
PROVIDERS: PCP Internal Medicine; Referring Provider Internal Medicine; Visit Provider Internal Medicine
DX: M25.552 Pain in left hip (principal)
CPT/HCPCS: 97035; 97110; 97140; 97162

== ENCOUNTER → 2022-06-15 | Outpatient (CLI) | payer MEDICARE, BC, SELFPAY ==
[2022-06-15 15:31] LABS: BNP,B-Type NATRIURETIC PEPTIDE 57.3 pg/mL (0-100)
== END | disposition home or self-care (01) ==
LOC: MTLAB 13:01
PROVIDERS: PCP Internal Medicine; Referring Provider Nurse Practitioner Gerontology; Visit Provider Nurse Practitioner Gerontology
DX: R06.02 Shortness of breath (principal)
CPT/HCPCS: 36415; 83880

== ENCOUNTER → 2022-06-28 | Outpatient (CLI) | payer MEDICARE, BC, SELFPAY ==
--- NOTE | 2022-06-28 11:50 | BI_ITS ---
MAMMOGRAPHY - BILATERAL SCREENING REASON FOR EXAM: Female, 82 years old. Routine annual screening examination. PERTINENT HISTORY: Non-contributory. TECHNIQUE: Digital bilateral breast anay (3D mammographic acquisition) in the CC and MLO projections. 2-D mediolateral oblique (MLO) and craniocaudad (CC) views of both breasts were obtained. CAD: Full Field Digital Mammography with Computer Added Detection was performed. COMPARISON: Comparison is made with prior study 06/24/2021 and 06/09/2020. FINDINGS: Breast Composition: There are scattered areas of fibroglandular density. There are no dominant masses or suspicious calcifications. Stable benign-appearing bilateral axillary lymph nodes. No other significant abnormalities are identified. There has been no significant change since the prior study. BI/SCRN MAMM (CAD)W/ANAY BILAT IMPRESSION: Stable bilateral screening mammogram. Yearly follow-up mammogram recommended. (A) ASSESSMENT CATEGORY: BIRADS Category 2: Benign. A letter regarding these results will be sent to the patient by the facility within 30 days. Approximately 10% of breast cancers are not detected by mammography. A normal mammogram should not delay biopsy of a clinically suspicious abnormality. [id number] Electronically Signed: Joe Posada MD at 12:37 EST ,
== END | disposition home or self-care (01) ==
LOC: OPBI 11:49
PROVIDERS: PCP Internal Medicine; Visit Provider Internal Medicine
DX: Z12.31 Encounter for screening mammogram for malignant neoplasm of breast (principal)
CPT/HCPCS: 77063; 77067

== ENCOUNTER → 2022-11-07 | Outpatient (CLI) | payer MEDICARE, BC, SELFPAY ==
[2022-11-07 10:38] LABS: Absolute Lymphocyte Count 2.55 X10^3/uL (0.83-4.51); Absolute Neutrophil Count 2.8 X10^3/uL (2.0-7.7); Basophil# 0.09 X10^3/uL; Basophil% 1.4 % (0-1); Eosinophil# 0.48 X10^3/uL; Eosinophils% 7.3 % (0-5); Hematocrit 38.3 % (37-47); Hemoglobin 11.9 g/dL (12.0-15.0); Lymphocyte # 2.55 X10^3/ul (0.83-4.51); Lymphocyte % 38.5 % (19-41); Mean Corp Hgb Conc 31.1 g/dL (32-36); Mean Corpuscular Hgb 26.3 pg (27.0-32.0); Mean Corpuscular Volume 84.5 fL (81-99); Mean Platelet Vol. 10.5 fl (6.2-12.0); Monocyte# 0.64 X10^3/uL; Monocyte% 9.7 % (0-10); NRBC Flagged by Analyzer 0 % (0-5); Neutrophil # 2.84 X10^3/uL (2.7-7.7); Neutrophil % 42.8 % (47-70); Platelet Count 198 K/mm3 (150-450); RBC Distribution Width CV 14.1 % (11.6-14.6); RBC Distribution Width SD 43.5 fl (35.1-43.9); Red Blood Count 4.53 M/mm3 (4.2-5.4); White Blood Count 6.6 K/mm3 (4.4-11.0)
== END | disposition home or self-care (01) ==
LOC: MTLAB 08:57
PROVIDERS: PCP Internal Medicine; Referring Provider Internal Medicine Rheumatology; Visit Provider Internal Medicine Rheumatology
DX: D64.9 Anemia, unspecified (principal)
CPT/HCPCS: 36415; 85025

== ENCOUNTER 2023-01-23 10:53 | Emergency (ER) | payer MEDICARE, BC, SELFPAY ==
[2023-01-23 10:56] VITALS: BP 161/78; PULSE 147; RESP 14; TEMP 36.6; O2SAT 99; BMI 30.7
--- NOTE | 2023-01-23 10:57 | EX.ED.DYSGE1 ---
HPI History of Present Illness Chief Complaint: Palpitations Narrative Narrative: 82-year-old female past medical history of diabetes, asthma, hypertension, frequent PVCs, sees Dr. Martinez, presents from her primary care provider's office with atrial fibrillation with rapid ventricular response. She was seen by Dr. Magnolia Ortega this morning for routine checkup. She denies having any weight gain, swelling of her legs, chest pain, or shortness of breath. An EKG was obtained at the office which showed atrial fibrillation with RVR. This is new onset for her according to her primary care provider. She is not anticoagulated. She also has history of hypothyroidism and her TSH 6 months ago was reportedly normal. She had a hemoglobin A1c of 7.6 today, but the patient states that she has been on steroids recently. Additionally, she does admit to dietary indiscretions. She is asymptomatic with her atrial fibrillation. [facility] Medical History [place] coronary artery calcium score less than 100 Allergic rhinitis Asthma COVID-19 Diabetes mellitus type II, controlled Essential hypertension GERD (gastroesophageal reflux disease) Hyperlipidemia Hypothyroidism Multiple premature ventricular complexes Obstructive sleep apnea Other secondary pulmonary hypertension Home Medications albuterol sulfate 90 mcg/actuation aerosol inhaler (Proventil HFA) 2 puff inhalation Q4H PRN sob 02/25/18 [History Last Taken Unknown] atorvastatin 10 mg tablet 10 mg PO QHS cholesterol 02/25/18 [History Last Taken 02/16/21] calcium carbonate 500 mg calcium (1,250 mg) tablet (Calcium 500) 500 mg PO QDAY 02/25/18 [History Last Taken 02/17/21] montelukast 10 mg tablet (Singulair) 10 mg PO QDAY 02/25/18 [History Last Taken 02/17/21] probiotic 1 cap PO DAILY 02/25/18 [History Last Taken 02/17/21] levothyroxine 100 mcg tablet 100 mcg PO QDAY hypothyroid 02/26/18 [History Last Taken 02/17/21] omeprazole 40 mg capsule,delayed release 40 mg PO QDAY 02/26/18 [History Last Taken 02/17/21] certolizumab pegol 400 mg/2 mL (200 mg/mL x2) subcutaneous syringe kit (Cimzia) 400 mg subcut .Q2W RA 02/17/21 [History Last Taken Unknown] cholecalciferol (vitamin D3) 50 mcg (2,000 unit) capsule (Vitamin D3) 50 mcg PO DAILY 02/17/21 [History Last Taken 02/17/21] ciclesonide 160 mcg/actuation aerosol inhaler (Alvesco) 2 puff inhalation BID 02/17/21 [History Last Taken 02/17/21] multivitamin 1 tab PO DAILY 02/17/21 [History Last Taken 02/17/21] losartan 100 mg-hydrochlorothiazide 25 mg tablet 1 tab PO DAILY bp 05/31/22 [History Last Taken Unknown] prednisone 20 mg tablet 20 mg PO DAILY 05/31/22 [History Last Taken Unknown] apixaban 5 mg tablet (Eliquis) 5 mg PO BID #60 tabs 01/23/23 [Rx Last Taken Unknown] diltiazem HCl 180 mg capsule,extended release 24 hr (Cardizem CD) 180 mg PO DAILY #30 caps 01/23/23 [Rx Last Taken Unknown] Allergy/AdvReac Type Severity Reaction Status Date / Time linagliptin [From Tradjenta] Allergy Intermediate SUN BURN Verified 01/23/23 11:06 amoxicillin [From Augmentin] AdvReac Intermediate Nausea Verified 01/23/23 11:06 clavulanic acid AdvReac Intermediate Nausea Verified 01/23/23 11:06 [From Augmentin] codeine AdvReac Intermediate Nausea Verified 01/23/23 11:06 liraglutide [From Victoza] AdvReac Intermediate Nausea Verified 01/23/23 11:06 Tetracyclines AdvReac Intermediate Nausea Verified 01/23/23 11:06 Family History Father Heart disease Unspecified type Mother , Age 80 Kidney disease Surgical History History of hysterectomy History of right heart catheterization (01/30/18) History of toe surgery Social History Smoking Status: Former smoker Tobacco: How many years used: 27 ROS ROS ED ROS Narrative Constitutional: No fever, no chills. HEENT: No sore throat. No neck pain. No loss of vision. No rhinorrhea. Cardiovascular: No chest pain. No palpitations. No pedal edema. Respiratory: No cough, no shortness of breath. Abdominal: No abdominal pain. No nausea. No vomiting. Genitourinary: No dysuria. No hematuria. Musculoskeletal: No myalgias. No arthralgias. Neurologic: No headaches. No dizziness. No lightheadedness. Skin: No rash. No change in color. Psychiatric: No depression. No anxiety. States feels well and does not need to be here. EXAM Physical Exam Narrative Exam Narrative: Afebrile. Vital signs noted. HEENT: Normocephalic. Atraumatic. PERRL, EOMI. Neck soft and supple. No point tenderness or step off. Cardiovascular: Irregularly irregular tachycardia, no murmurs, rubs, or gallops appreciated. Respiratory: No tachypnea. Lungs clear to auscultation bilaterally. Gastrointestinal: Abdomen soft, nontender, with normoactive bowel sounds. No rebound or guarding. Neurological: Awake. Alert. Nonfocal, nonlateralizing. Skin: No rash. Normal color. No pallor. Musculoskeletal: No pedal edema. Full range of motion extremities. Const Vital Signs: 01/23/23 10:56 01/23/23 10:56 01/23/23 11:10 Temperature 97.8 F Temperature Source Temporal Pulse Rate 147 H 126 H Respiratory Rate 14 16 Respiratory Pattern Normal Blood Pressure 161/78 H 147/68 H Blood Pressure Mean 105 94 Pulse Ox 99 99 Oxygen Delivery Method Room Air Room Air 01/23/23 11:20 01/23/23 12:05 Temperature Temperature Source Pulse Rate 97 108 H Respiratory Rate 15 21 H Respiratory Pattern Blood Pressure 115/62 140/69 H Blood Pressure Mean 79 92 Pulse Ox 100 97 Oxygen Delivery Method Room Air Room Air MDM MDM MDM Narrative Medical decision making narrative: Comprehensive work-up was pursued. This is new onset, I do feel blood work, chest x-ray, TSH and antiarrhythmic is indicated. She was placed on a environmental monitoring technician.As EKG was obtained and interpreted by myself independently as atrial fibrillation with rapid ventricular response at [address] changes. No STEMI. She was administered Cardizem 10 mg intravenously due to her laboratory work and she has slightly elevated white count of 11.4 which I think is nonspecific, normal hemoglobin of 13.6, hematocrit normal at 41.8, platelet count normal at 221. I reviewed her electrolyte panel and sodium slightly low at 135 with potassium 3.4, BUN slightly elevated at 20 with a creatinine of 1.1. Glucose is elevated at 245, but she has a normal anion gap of 7. High-sensitivity troponin is 16 and normal. LFTs show AST slightly low at 13 which I think is nonspecific as well. Urinalysis was obtained and is negative for infection, I do not feel antibiotics are indicated. Repeat examination after Cardizem bolus shows that her heart rate ranges from 99-1 14. I do feel she is rate controlled. She remains asymptomatic with this. I reviewed her chest x-ray and interpreted it independently and see no evidence of pneumothorax or pneumonia. I reviewed the radiology report which confirms my independent interpretation. Given that she is rate controlled, I discussed the patient with Dr. Beverly for Dr. Martinez with cardiology. It was felt that as she is asymptomatic that she could be discharged on Cardizem 180 mg daily, and on Eliquis as she has a CHADS2 score of 2 or 3. The risks and benefits of anticoagulation were explained to her, and she was informed of the risk of spontaneous bleeding, intracranial hemorrhage, and GI bleeding and acknowledges an understanding. She was given her first doses of medication here, and prescriptions written for the next 30 days. I do feel that she can be discharged safely home with follow-up to cardiology. Patient did participate in her disposition and prefers outpatient follow-up. Return instructions to the emergency department were reviewed. Disposition is discharged home in stable condition. History & Record Review Discussion w/independent historian: Patient Additional record(s) reviewed:: Prior outpatient record and Prior labs Lab Data Attestation: I reviewed the patient's lab results. Labs: Laboratory Results - last 24 hr 01/23/23 01/23/23 10:56 11:47 WBC 11.4 H RBC 5.05 Hgb 13.6 Hct 41.8 MCV 82.8 MCH 26.9 L MCHC 32.5 RDW Std Deviation 45.1 H RDW Coeff of Diana 15.0 H Plt Count 221 MPV 9.8 Immature Gran % (Auto) 0.400 Neut % (Auto) 54.6 Lymph % (Auto) 34.6 [place] % (Auto) 8.0 Eos % (Auto) 2.0 Baso % (Auto) 0.4 Absolute Neuts (auto) 6.2 Absolute Lymphs (auto) 3.94 Nucleated RBC % 0 Sodium 135 L Potassium 3.4 L Chloride 101 Carbon Dioxide 27.0 Anion Gap 7 BUN 20 H Creatinine 1.11 H Estim Creat Clear Calc 34.32 Est GFR (MDRD) Af Amer 61 Est GFR (MDRD) Non-Af 50 L BUN/Creatinine Ratio 18.0 Glucose 245 H Calcium 9.2 Total Bilirubin 0.60 AST 13 L ALT 31 Alkaline Phosphatase 66 Troponin I High Sens 16 Total Protein 7.5 Albumin 3.5 Globulin 4.0 Albumin/Globulin Ratio 0.9 TSH 3.05 Urine Color Yellow Urine Clarity Clear Urine pH 7.0 Ur Specific [place] 1.010 Urine Protein Negative Urine Glucose (UA) 50 H Urine Ketones Negative Urine Occult Blood Negative Urine Nitrite Negative Urine Bilirubin Negative Urine Urobilinogen Normal Ur Leukocyte Esterase 25 H Urine RBC 0 SEEN Urine WBC 0 SEEN Ur Squamous Epith Cells 0-5 SEEN Urine Bacteria 0 SEEN Urine Mucus 0 SEEN Radiography Diagnostic Testing: Clinical Impression(s) from Imaging Studies Chest X-Ray 01/23/23 11:22 IMPRESSION: Scarring versus atelectasis at the left lung base. Otherwise no radiographic evidence of acute cardiopulmonary disease. Electronically Signed: John Nieto, at 11:39 EDT Reading Location ID and State: [address] [place] [address] Tel , Service support , Discharge Plan Triage Chief Complaint: Palpitations ED Provider: Amadeo Huber Dx/Rx/DC Orders Clinical Impression: Multiple premature ventricular complexes, Essential hypertension, New onset a-fib Instructions: ED AFIB Prescriptions: New diltiazem HCl [Cardizem CD] 180 mg capsule,extended release 24hr 180 mg PO DAILY Qty: 30 0RF Eliquis 5 mg tablet 5 mg PO BID Qty: 60 0RF No Action montelukast [Singulair] 10 mg tablet 10 mg PO QDAY probiotic 1 cap 1 cap PO DAILY albuterol sulfate [Proventil HFA] 90 mcg/actuation HFA aerosol inhaler 2 puff INHALATION Q4H PRN (Reason: sob) atorvastatin 10 mg tablet 10 mg PO QHS calcium carbonate [Calcium 500] 500 mg calcium (1,250 mg) tablet 500 mg PO QDAY levothyroxine 100 mcg tablet 100 mcg PO QDAY omeprazole 40 mg capsule,delayed release(DR/EC) 40 mg PO QDAY prednisone 20 mg tablet 20 mg PO DAILY Alvesco 160 mcg/actuation HFA aerosol inhaler 2 puff INHALATION BID multivitamin Tablet 1 tab PO DAILY cholecalciferol (vitamin D3) [Vitamin D3] 50 mcg (2,000 unit) Capsule 50 mcg PO DAILY Cimzia 400 mg/2 mL (200 mg/mL x 2) Syringe Kit 400 mg SUBCUT .Q2W losartan-hydrochlorothiazide 100-25 mg tablet 1 tab PO DAILY Primary Care Provider: Magnolia Ortega Referrals: Lenard Martinez MD [Med Staff - Active Staff] - 3-5 Days Magnolia Ortega MD [Primary Care Provider] - Disposition Disposition: Home, Self Care
--- NOTE | 2023-01-23 11:00 | NURSING ---
NO OLD EKGS
[2023-01-23 11:03] LABS: Absolute Lymphocyte Count 3.94 X10^3/uL (0.83-4.51); Absolute Neutrophil Count 6.2 X10^3/uL (2.0-7.7); Basophil# 0.04 X10^3/uL; Basophil% 0.4 % (0-1); Eosinophil# 0.23 X10^3/uL; Hematocrit 41.8 % (37-47); Hemoglobin 13.6 g/dL (12.0-15.0); Lymphocyte # 3.94 X10^3/ul (0.83-4.51); Lymphocyte % 34.6 % (19-41); Mean Corp Hgb Conc 32.5 g/dL (32-36); Mean Corpuscular Hgb 26.9 pg (27.0-32.0); Mean Corpuscular Volume 82.8 fL (81-99); Mean Platelet Vol. 9.8 fl (6.2-12.0); Monocyte# 0.91 X10^3/uL; NRBC Flagged by Analyzer 0 % (0-5); Neutrophil # 6.24 X10^3/uL (2.7-7.7); Neutrophil % 54.6 % (47-70); Platelet Count 221 K/mm3 (150-450); RBC Distribution Width SD 45.1 fl (35.1-43.9); Red Blood Count 5.05 M/mm3 (4.2-5.4); White Blood Count 11.4 K/mm3 (4.4-11.0)
[2023-01-23 11:10] VITALS: BP 147/68; PULSE 126; RESP 16; O2SAT 99
[2023-01-23] MEDS: dilTIAZem 25 MG/5 ML Vial 10 MG IV BOLUS (11:15)
[2023-01-23 11:20] VITALS: BP 115/62; PULSE 97; RESP 15; O2SAT 100
--- NOTE | 2023-01-23 11:22 | RAD_ITS ---
INDICATION: CAD EXAMINATION/TECHNIQUE: X-RAY - XR Chest 1 View COMPARISON: FINDINGS: LINES/DEVICES: None. LUNGS: There is scarring versus atelectasis at the left lung base. Otherwise no consolidation, edema or effusion. No pneumothorax. MEDIASTINUM AND CARDIOVASCULAR STRUCTURES: Cardiac silhouette not enlarged. Central airways and mediastinal contour are unremarkable. BONES AND SOFT TISSUES: Unremarkable. RAD/Chest 1 View (Portable) IMPRESSION: Scarring versus atelectasis at the left lung base. Otherwise no radiographic evidence of acute cardiopulmonary disease. Electronically Signed: John Nieto, at 11:39 EDT ,
[2023-01-23 11:27] LABS: ALB/GLOB Ratio 0.9 RATIO (0.9-2.4); AST(SGOT) 13 U/L (15-37); Alanine Aminotransfer ALT/SGPT 31 U/L (13-56); Albumin, Serum 3.5 g/dL (3.2-5.0); Alkaline Phosphatase 66 U/L (45-117); Anion Gap 7 (5-15); BUN 20 mg/dL (7-18); Calcium,Total 9.2 mg/dL (8.5-10.1); Chloride 101 mmol/L (98-107); Creatinine, Serum 1.11 mg/dL (0.55-1.02); EST Glomerular Filtration Rate 50 mL/min (>60); Est Glom Filt Rate - Afr Amer 61 mL/min (>60); Estimated Creatinine Clearance 34.32 ml/min; Glucose 245 mg/dL (74-106); Potassium 3.4 mmol/L (3.5-5.1); Protein, Total 7.5 g/dL (6.4-8.2); Sodium Level 135 mmol/L (136-145); Thyroid Stim Hormone (TSH) 3.05 uIU/mL (0.358-3.74); Troponin-I HS 16 pg/mL (3.0-54.0)
--- NOTE | 2023-01-23 12:01 | CM.ED ---
Social Work SW met with patient and introduced herself and role as [facility] [employer] Tender. Patient lying on hospital bed and agreeable to speak with SW. SW inquired about AD documents as we do not have copies in patient's chart. Patient reports having completed her LW and HCPOA, which identifies her brother, Donavon, as her HCPOA. SW encouraged patient to bring documents into Medical records to be added to her chart; patient reports understanding and has no other needs at this time. Taylor Livingston MSW, [place]
[2023-01-23 12:02] LABS: Bacteria 0 SEEN /hpf (None Seen); Mucous, Urine 0 SEEN /hpf (<or=2+); Red Blood Cells-Urine 0 SEEN /hpf (0-5); White Blood Cells 0 SEEN /hpf (0-5)
[2023-01-23 12:03] LABS: Color, Urine Yellow (Yellow); Glucose, Dipstick 50 mg/dl (Normal); Ketone-Dipstick Negative (Negative); Leukocyte Esterase-Dipstick 25 /ul (Negative); Nitrite-Dipstick Negative (Negative); Occult Blood-Urine Negative /ul (Negative); Protein-Dipstick Negative (Negative); Urine Bilirubin Dipstick Negative (Negative); Urine Clarity Clear (Clear); Urine Urobilinogen Normal (Normal)
[2023-01-23 12:05] VITALS: BP 140/69; PULSE 108; RESP 21; O2SAT 97
[2023-01-23 12:09] LABS: Squamous Epithelial Cells - UA 0-5 SEEN /hpf (5-10)
[2023-01-23 12:49] VITALS: BP 143/73; PULSE 20; RESP 120; O2SAT 97
[2023-01-23] MEDS: APIXABAN 5 MG TABLET PO (12:55)
[2023-01-23] MEDS: dilTIAZem CD 180 MG Capsule PO (12:56)
== END 2023-01-23 12:57 | disposition home or self-care (01) ==
PROVIDERS: Emergency Provider Emergency Medicine; PCP Internal Medicine; Visit Provider Emergency Medicine
DX: I49.3 Ventricular premature depolarization (principal); I48.91 Unspecified atrial fibrillation; I10 Essential (primary) hypertension; E78.5 Hyperlipidemia, unspecified; E03.9 Hypothyroidism, unspecified; G47.33 Obstructive sleep apnea (adult) (pediatric); J45.909 Unspecified asthma, uncomplicated; Z87.891 Personal history of nicotine dependence; Z79.899 Other long term (current) drug therapy; Z86.16 Personal history of COVID-19
CPT/HCPCS: 71045; 80053; 81001; 84443; 84484; 85025; 93005; 96374; 99285; A4216

== ENCOUNTER → 2023-02-23 | Outpatient (CLI) | payer MEDICARE, BC, SELFPAY ==
[2023-02-23 10:41] LABS: BNP,B-Type NATRIURETIC PEPTIDE 384.3 pg/mL (0-100)
[2023-02-23 10:48] LABS: Anion Gap 5 (5-15); BUN 22 mg/dL (7-18); BUN/Creat Ratio 19.5 RATIO (10-20); Calcium,Total 9.1 mg/dL (8.5-10.1); Chloride 103 mmol/L (98-107); Creatinine, Serum 1.13 mg/dL (0.55-1.02); EST Glomerular Filtration Rate 49 mL/min (>60); Est Glom Filt Rate - Afr Amer 59 mL/min (>60); Glucose 315 mg/dL (74-106); Potassium 4.4 mmol/L (3.5-5.1); Sodium Level 135 mmol/L (136-145)
== END | disposition home or self-care (01) ==
LOC: LABSPEC 10:02
PROVIDERS: PCP Internal Medicine; Referring Provider Internal Medicine; Visit Provider Internal Medicine
DX: I50.9 Heart failure, unspecified (principal)
CPT/HCPCS: 80048; 83880

== ENCOUNTER → 2023-03-02 | Outpatient (CLI) | payer MEDICARE, BC, SELFPAY ==
[2023-03-02 10:12] LABS: Anion Gap 5 (5-15); BUN 26 mg/dL (7-18); BUN/Creat Ratio 26.2 RATIO (10-20); Calcium,Total 8.8 mg/dL (8.5-10.1); Chloride 102 mmol/L (98-107); Creatinine, Serum 0.99 mg/dL (0.55-1.02); EST Glomerular Filtration Rate 57 mL/min (>60); Est Glom Filt Rate - Afr Amer 69 mL/min (>60); Glucose 272 mg/dL (74-106); Sodium Level 137 mmol/L (136-145)
[2023-03-02 10:21] LABS: BNP,B-Type NATRIURETIC PEPTIDE 315.6 pg/mL (0-100)
== END | disposition home or self-care (01) ==
LOC: LAB 09:43
PROVIDERS: PCP Internal Medicine; Referring Provider Internal Medicine; Visit Provider Internal Medicine
DX: I50.9 Heart failure, unspecified (principal)
CPT/HCPCS: 80048; 83880

== ENCOUNTER 2023-03-20 10:20 | Day surgery (SDC) | payer MEDICARE, BC, SELFPAY ==
[2023-03-19 13:48] VITALS: BMI 30.9
--- NOTE | 2023-03-20 10:18 | EKG12_ITS ---
Test Reason : DCCV Blood Pressure : / mmHG Vent. Rate : 107 BPM Atrial Rate : 286 BPM P-R Int : 000 ms QRS Dur : 070 ms QT Int : 336 ms P-R-T Axes : -88 067 071 degrees QTc Int : 448 ms Atrial flutter with variable A-V block ST elevation consider inferior injury or acute infarct * ACUTE [place] Abnormal ECG No previous ECGs available Confirmed by SEBASTIAN FRAGOSO, LENARD ([id number]), senior editor ADY BALLESTEROS ([id number]) on 04/18/2023 10:39:24 AM Referred By: Lenard Martinez Confirmed By:LENARD MARTINEZ MD
--- NOTE | 2023-03-20 11:59 | EKG12_ITS ---
Test Reason : POST DCCV Blood Pressure : / mmHG Vent. Rate : 089 BPM Atrial Rate : 080 BPM P-R Int : 160 ms QRS Dur : 052 ms QT Int : 380 ms P-R-T Axes : 081 070 082 degrees QTc Int : 462 ms Sinus rhythm with Premature atrial complexes and Premature ventricular complexes or Fusion complexes Otherwise normal ECG When compared with ECG of 23-JAN-2023 10:56, Sinus rhythm has replaced Atrial fibrillation ST no longer depressed in Anterolateral leads Nonspecific T wave abnormality no longer evident in Inferior leads Confirmed by SEBASTIAN FRAGOSO, LENARD ([id number]), online editor ADY BALLESTEROS ([id number]) on 04/18/2023 10:38:46 AM Referred By: Lenard Martinez Confirmed By:LENARD MARTINEZ MD
--- NOTE | 2023-03-20 12:24 | PCM.OP.PRO ---
Procedure Report Date of Procedure: 03/20/23 DC cardio version. 83-year-old lady with a history of persistent atrial flutter on anticoagulation who presents for a DC cardioversion procedure. The patient has been compliant with anticoagulation. The patient was admitted in the postabsorptive nonsedated state. The patient was seen by Dr. Xiao of the critical care and pulmonary division. Informed consent was obtained. Anterior-posterior pads were applied. The patient was then administered 35 mg of intravenous propofol at 12:15 PM and 200 J of synchronized DC cardioversion energy were applied with prompt reversal to sinus rhythm. Patient tolerated the procedure well. Conclusion: Successful DC cardioversion from atrial flutter to sinus rhythm. DC diltiazem on account of peripheral edema. Continue beta-elise Continue anticoagulation Follow-up as per office protocol.
--- NOTE | 2023-03-20 12:42 | PRO.PCM_ITS ---
Procedure Report Date of Procedure: 03/20/23 BRIEF HISTORY OF PRESENT ILLNESS: The patient is a 83-year-old female who presented to [facility] for an elective outpatient cardioversion due to underlying atrial fibrillation. The patient reports no PO intake since midnight, but is currently therapeutic on anticoagulation. The patient does not have a history of BETZY. The patient reports very remote history of smoking (>35 years) No hx of COPD. The patient denies any recent constitutional symptoms such as fevers, chills, nausea or vomiting. The patient denies previous applicable anesthetic complications. Patient's last known ejection fraction was 65%. Patient is on Eliquis at the time of the procedure PHYSICAL EXAMINATION: VITAL SIGNS: Reviewed and were acceptable. GENERAL: The patient is a female, in no apparent distress, speaking in full sentences. HEENT: Normocephalic, atraumatic. Mucous membranes are moist and pink. Good mouth opening noted. Trachea is midline. Good neck mobility. MP II CHEST: S1, S2 irregularly irregular. No murmurs, rubs or gallops were noted. LUNGS: Clear to auscultation bilaterally without appreciable wheezes, rales or rhonchi. ABDOMEN: Soft, nontender, nondistended. Positive bowel sounds. EXTREMITIES: There is no clubbing, cyanosis or edema. ASA Class: II DESCRIPTION OF PROCEDURE: After confirmation of informed consent, the patient's anesthesia plan was reviewed in detail. Propofol was chosen. Risks and benefits were reviewed and the patient agreed to proceed. At 12:15 PM, the patient was given 20 mg of propofol. She required another 15 mg of propofol to achieve appropriate sedation. The patient achieved an appropriate level of sedation and received 1 attempt synchronized cardioversion, at [address] Martinez at the bedside. This was successful in achieving normal sinus rhythm. The patient was monitored until 12:47 PM, at which time the patient reached their baseline mental status and function. The patient tolerated the procedure well. ESTIMATED BLOOD LOSS: None RECOMMENDATIONS: Okay to recover in usual fashion.
== END 2023-03-20 13:30 | disposition home or self-care (01) ==
PROVIDERS: PCP Internal Medicine; Referring Provider Internal Medicine Cardiovascular Disease; Visit Provider Internal Medicine Cardiovascular Disease
DX: I48.91 Unspecified atrial fibrillation (principal); G47.33 Obstructive sleep apnea (adult) (pediatric); E03.9 Hypothyroidism, unspecified; E78.5 Hyperlipidemia, unspecified; K21.9 Gastro-esophageal reflux disease without esophagitis; J45.909 Unspecified asthma, uncomplicated; I10 Essential (primary) hypertension; I49.3 Ventricular premature depolarization; Z86.16 Personal history of COVID-19; Z79.899 Other long term (current) drug therapy; Z79.01 Long term (current) use of anticoagulants
CPT/HCPCS: 92960; 93005; J7040; J1940

== ENCOUNTER → 2023-06-29 | Outpatient (CLI) | payer MEDICARE, BC, SELFPAY ==
--- NOTE | 2023-06-29 12:58 | BI_ITS ---
MAMMOGRAPHY - BILATERAL SCREENING 3-D TOMOSYNTHESIS REASON FOR EXAM: Female, 83 years old. Routine screening PERTINENT HISTORY: No significant family history. TECHNIQUE: 2-D mammograms and 3-D Tomosynthesis of the breast (s) were performed. CAD was performed. COMPARISON: 2020, 2021 FINDINGS: The breast composition is almost entirely fat. Scattered benign calcifications are seen. No dense spiculated masses or suspicious microcalcifications are identified. No architectural distortion is identified. There is no skin thickening or retraction. There has been no significant change since the prior study. BI/SCRN MAMM (CAD)W/ANAY BILAT IMPRESSION: No mammographic signs of malignancy. Routine yearly mammograms recommended. ASSESSMENT CATEGORY: BIRADS Category 1: Negative. A letter regarding these results will be sent to the patient by the facility within 30 days. FOLLOW UP RECOMMENDATION: Yearly follow up mammogram recommended. (A) Approximately 10% of breast cancers are not detected by mammography. A normal mammogram should not delay biopsy of a clinically suspicious abnormality. Electronically Signed: Adrien Fernandes MD at 17:38 EST ,
== END | disposition home or self-care (01) ==
LOC: OPBI 12:58
PROVIDERS: PCP Internal Medicine; Referring Provider Internal Medicine; Visit Provider Internal Medicine
DX: Z12.31 Encounter for screening mammogram for malignant neoplasm of breast (principal)
CPT/HCPCS: 77063; 77067

== ENCOUNTER → 2023-09-10 | Outpatient (CLI) | payer MEDICARE, BC, SELFPAY ==
[2023-09-10 15:22] LABS: Bacteria 0 SEEN /hpf (None Seen); Mucous, Urine 0 SEEN /hpf (<or=2+); Red Blood Cells-Urine 0 SEEN /hpf (0-5)
[2023-09-10 15:29] LABS: Color, Urine Yellow (Yellow); Glucose, Dipstick 100 mg/dl (Normal); Ketone-Dipstick 5 mg/dl (Negative); Leukocyte Esterase-Dipstick 100 /ul (Negative); Nitrite-Dipstick Negative (Negative); Occult Blood-Urine Negative /ul (Negative); Protein-Dipstick 15 mg/dl (Negative); Urine Bilirubin Dipstick Negative (Negative); Urine Clarity Clear (Clear); Urine Urobilinogen Normal (Normal)
[2023-09-10 15:45] LABS: ALB/GLOB Ratio 1.2 RATIO (0.9-2.4); AST(SGOT) 20 U/L (15-37); Alanine Aminotransfer ALT/SGPT 26 U/L (13-56); Albumin, Serum 3.8 g/dL (3.2-5.0); Alkaline Phosphatase 92 U/L (45-117); Anion Gap 3 (5-15); BUN 15 mg/dL (7-18); BUN/Creat Ratio 17.6 RATIO (10-20); Chloride 106 mmol/L (98-107); Creatinine, Serum 0.85 mg/dL (0.55-1.02); EST Glomerular Filtration Rate 68 mL/min (>60); Est Glom Filt Rate - Afr Amer 82 mL/min (>60); Globulin 3.1 g/dL (2.2-4.2); Glucose 74 mg/dL (74-106); Potassium 3.5 mmol/L (3.5-5.1); Protein, Total 6.9 g/dL (6.4-8.2); Sodium Level 142 mmol/L (136-145)
[2023-09-10 15:52] LABS: Microalbumin,Random Urine 15.8 mg/L (NO RANGE EST.); Microalbumin:Creatinine Ratio 10.2 mg/g CRE (<30 mg/g CRE)
[2023-09-10 15:55] LABS: Calcium Oxalate Crystals Ur RARE /hpf (<or=2+); Squamous Epithelial Cells - UA 0-5 SEEN /hpf (5-10); White Blood Cells 0-5 SEEN /hpf (0-5)
== END | disposition home or self-care (01) ==
LOC: LABSPEC 14:59
PROVIDERS: PCP Internal Medicine; Referring Provider Internal Medicine; Visit Provider Internal Medicine
DX: I10 Essential (primary) hypertension (principal); Z79.899 Other long term (current) drug therapy
CPT/HCPCS: 80053; 81001; 82043; 82570; 87086; 87088

== ENCOUNTER → 2023-10-11 | Outpatient (CLI) | payer MEDICARE, BC, SELFPAY ==
--- NOTE | 2023-10-11 13:54 | BD_ITS ---
STUDY: DUAL ENERGY X-RAY ABSORPTIOMETRY / DXA REASON FOR EXAM: Female, 83 years old. [id number] TECHNIQUE: Bone Mineral Density (BMD) measurements of lumbar spine and bilateral hips were obtained. COMPARISON: Comparison is made with prior study February 01, 2022. FINDINGS: Lumbar Spine (L1-L4): g/cm2 (1.031) / T-score (-0.1) / Z-score (2.6) Findings are suggestive of normal bone density with a low fracture risk. Left Femur Total: g/cm2 (0.886) / T-score (-0.5) / Z-score (1.7) Left Femoral Neck: g/cm2 (0.685) / T-score (-1.5) / Z-score (0.9) Right Femur Total: g/cm2 (0.774) / T-score (-1.4) / Z-score (0.8) Right Femoral Neck: g/cm2 (0.703) / T-score (-1.3) / Z-score (1.1) The T-Scores on the most recent prior examination were: Lumbar Spine (L1-L4): There has been worsening of bone density since the previous examination. Left Femur Total: which represents a worsening of 5.8%. Right Femur Total: which represents a worsening of 4.5%. BD/Dexa Bone Density Study IMPRESSION: The patient is considered osteopenic as outlined below according to World New Organization (WHO) criteria with a low fracture risk. There has been worsening of bone density since the previous examination. Reference Information: The T-score is the number of standard deviations above or below the standard which is normal for young adults at their peak bone mineral density. The World Health Organization (WHO) interprets the T-scores as follows: Above -1 Normal bone density Between -1 and -2.5 Osteopenia Equal to / or below -2.5 Osteoporosis As a practical clinical guideline, osteopenia may be graded as follows: Mild -1 through -1.5 Moderate -1.6 through -2.0 Severe -2.1 through -2.4 The Z-score is the number of standard deviations above or below age-matched controls. A Z-score of less than -1.5 would be considered abnormal. References: 1. NIH Osteoporosis and Related Bone Diseases www osteo.org 2. International Society for Clinical Densitometry www iscd.org 3. National Osteoporosis Foundation www nof.org Electronically Signed: Joe Posada MD at 13:53 EDT ,
== END | disposition home or self-care (01) ==
LOC: OPBD 13:52
PROVIDERS: PCP Internal Medicine; Referring Provider Internal Medicine; Visit Provider Internal Medicine
DX: Z78.0 Asymptomatic menopausal state (principal)
CPT/HCPCS: 77080

== ENCOUNTER 2023-10-24 18:15 | Emergency (ER) | payer MEDICARE, BC, SELFPAY ==
[2023-10-24 18:16] VITALS: BP 153/88; PULSE 156; RESP 22; TEMP 36.5; O2SAT 99; BMI 29.7
[2023-10-24 18:28] VITALS: BP 183/108; PULSE 152; RESP 32; O2SAT 99
[2023-10-24 18:54] LABS: Absolute Lymphocyte Count 2.67 X10^3/uL (0.83-4.51); Absolute Neutrophil Count 6.3 X10^3/uL (2.0-7.7); Basophil# 0.08 X10^3/uL; Basophil% 0.8 % (0-1); Eosinophil# 0.25 X10^3/uL; Eosinophils% 2.4 % (0-5); Hematocrit 43.1 % (37-47); Hemoglobin 13.3 g/dL (12.0-15.0); Lymphocyte # 2.67 X10^3/ul (0.83-4.51); Lymphocyte % 26.1 % (19-41); Mean Corp Hgb Conc 30.9 g/dL (32-36); Mean Corpuscular Hgb 26.5 pg (27.0-32.0); Mean Platelet Vol. 10.3 fl (6.2-12.0); Monocyte# 0.87 X10^3/uL; Monocyte% 8.5 % (0-10); NRBC Flagged by Analyzer 0 % (0-5); Neutrophil # 6.33 X10^3/uL (2.7-7.7); Neutrophil % 61.8 % (47-70); Platelet Count 204 K/mm3 (150-450); RBC Distribution Width CV 16.3 % (11.6-14.6); RBC Distribution Width SD 51.4 fl (35.1-43.9); Red Blood Count 5.01 M/mm3 (4.2-5.4); White Blood Count 10.2 K/mm3 (4.4-11.0)
--- NOTE | 2023-10-24 18:59 | ED.VIS.CHEST ---
HPI History of Present Illness Chief Complaint: Palpitations Narrative Narrative: 83-year-old female with history of A-fib presenting with tachycardia. She feels palpitations. She denies chest pain or shortness of breath. She is not lightheaded. Patient states she has history of A-fib and she is on Eliquis 5 mg p.o. twice daily. She is also on metoprolol twice a day. Patient states he feels otherwise well. PFSH [facility] Medical History [place] coronary artery calcium score less than 100 Allergic rhinitis Asthma Atrial fibrillation COVID-19 Diabetes mellitus type II, controlled Essential hypertension GERD (gastroesophageal reflux disease) Hyperlipidemia Hypothyroidism Multiple premature ventricular complexes Obstructive sleep apnea Other secondary pulmonary hypertension Home Medications albuterol sulfate 90 mcg/actuation aerosol inhaler (Proventil HFA) 2 puff inhalation Q4H PRN sob 02/25/18 [History Last Taken Unknown] atorvastatin 10 mg tablet 10 mg PO QHS cholesterol 02/25/18 [History Last Taken 03/20/23] calcium carbonate (Calcium 500) 500 mg PO QDAY 02/25/18 [History Last Taken 02/17/21] montelukast 10 mg tablet (Singulair) 10 mg PO QDAY 02/25/18 [History Last Taken 02/17/21] probiotic 1 cap PO DAILY 02/25/18 [History Last Taken 02/17/21] levothyroxine 100 mcg tablet 100 mcg PO QDAY hypothyroid 02/26/18 [History Last Taken 02/17/21] cholecalciferol (vitamin D3) 50 mcg (2,000 unit) capsule (Vitamin D3) 50 mcg PO DAILY 02/17/21 [History Last Taken 02/17/21] ciclesonide 160 mcg/actuation aerosol inhaler (Alvesco) 2 puff inhalation BID 02/17/21 [History Last Taken 02/17/21] multivitamin 1 tab PO DAILY 02/17/21 [History Last Taken 02/17/21] apixaban 5 mg tablet (Eliquis) 5 mg PO BID #180 tabs 02/04/23 [Rx Last Taken 03/20/23] abatacept 125 mg/mL subcutaneous syringe (Orencia) 125 mg subcut QWEEK 05/29/23 [History Last Taken Unknown] famotidine 20 mg tablet 20 mg PO DAILY 05/29/23 [History Last Taken Unknown] insulin detemir U-100 100 unit/mL subcutaneous solution (Levemir U-100 Insulin) 20 unit subcut BID 05/29/23 [History Last Taken Unknown] losartan 100 mg tablet 100 mg PO DAILY #90 tabs 05/29/23 [Rx Last Taken Unknown] metoprolol tartrate 25 mg tablet 25 mg PO BID #60 tabs 10/24/23 [Rx Last Taken Unknown] Allergy/AdvReac Type Severity Reaction Status Date / Time linagliptin [From Tradjenta] Allergy Intermediate SUN BURN Verified 05/29/23 09:29 amoxicillin [From Augmentin] AdvReac Intermediate Nausea Verified 05/29/23 09:29 clavulanic acid AdvReac Intermediate Nausea Verified 05/29/23 09:29 [From Augmentin] codeine AdvReac Intermediate Nausea Verified 05/29/23 09:29 liraglutide [From Victoza] AdvReac Intermediate Nausea Verified 05/29/23 09:29 Tetracyclines AdvReac Intermediate Nausea Verified 05/29/23 09:29 Family History Father Heart disease Unspecified type Mother , Age 80 Kidney disease Surgical History History of hysterectomy History of right heart catheterization (01/30/18) History of toe surgery Social History Smoking Status: Former smoker Tobacco: How many years used: 27 ROS ROS ED Constitutional Constitutional ED: Denies chills, fever(s) or sweats Eyes Eyes: Denies blurry vision or change in vision ENT ENT ED: Denies ear pain or sore throat Cardiovascular Cardiovascular: Reports palpitations and racing heartbeat; Denies chest pain Respiratory/Chest Respiratory/Chest: Denies cough, dyspnea or sputum Gastrointestinal Gastrointestinal: Denies abdominal pain, constipation, diarrhea, nausea or vomiting Genitourinary Genitourinary ED: Denies dysuria, hematuria or urinary frequency Musculoskeletal Musculoskeletal: Denies arthralgias, myalgias or neck pain Integumentary Denies abscess, Abrasions or rash Neurologic Neurologic: Denies headache(s), paresthesias or weakness Psychiatric Psychiatric: Denies anxiety, depression, suicidal ideation or suicidal thoughts Endocrine Endocrinology: Denies polydipsia or polyuria EXAM Physical Exam Const Vital Signs: 10/24/23 18:16 10/24/23 18:25 10/24/23 18:28 Temperature 97.7 F L Temperature Source Temporal Pulse Rate 156 H 152 H Respiratory Rate 22 H 32 H Respiratory Effort Normal Blood Pressure 153/88 H 183/108 H Blood Pressure Mean 109 133 Pulse Ox 99 99 Oxygen Delivery Method Room Air Room Air 10/24/23 18:58 10/24/23 19:15 10/24/23 20:00 Temperature Temperature Source Pulse Rate 106 H 84 Respiratory Rate 18 23 H Respiratory Effort Blood Pressure 161/94 H 155/66 H Blood Pressure Mean 116 95 Pulse Ox 99 95 Oxygen Delivery Method Room Air Room Air 10/24/23 21:00 Temperature Temperature Source Pulse Rate 89 Respiratory Rate 16 Respiratory Effort Blood Pressure 169/60 H Blood Pressure Mean 96 Pulse Ox 96 Oxygen Delivery Method Room Air Positive well nourished General Appearance ED: NAD HEENT Reports moist mucous membranes normocephalic and atraumatic Eyes PERRL Chest Wall inspection of chest normal Resp normal respiratory effort and clear to auscultation bilaterally Cardio Rate: tachycardic Rhythm: abnormal rhythm irregularly irregular GI normal to inspection, nondistended, normoactive bowel sounds Neuro oriented x3 and CN's II-XII intact bilaterally Sensorium / Orientation: awake and alert Psych mental status grossly normal Skin no rashes or lesions noted MDM MDM MDM Narrative Medical decision making narrative: Patient presented with tachycardia. Her EKG on my interpretation looks like A-fib at 152 bpm. Patient is a 25 Cardizem. Heart rate is now in the 80s. Sinus rhythm. I repeated an EKG and on my interpretation is sinus rhythm at 80 bpm without sign of ischemic change. CBC showed normal white blood cell count of 10.2, hemoglobin 30.3, platelets 2 4, renal function and electrolytes are normal. BNP 288. High-sensitivity troponin 23. Delta troponin 28. Patient feeling better. Spoke with Dr. Martinez at 9:02 PM. He recommended metoprolol 25 mg p.o. twice daily. I will write the patient a prescription for this. She will follow-up with the office. Impression: 1. A-fib with RVR Lab Data Labs: Laboratory Results - last 24 hr 04/17/24 04/17/24 18:35 20:58 WBC 10.2 RBC 5.01 Hgb 13.3 Hct 43.1 MCV 86.0 MCH 26.5 L MCHC 30.9 L RDW Std Deviation 51.4 H RDW Coeff of Diana 16.3 H Plt Count 204 MPV 10.3 Immature Gran % (Auto) 0.400 Neut % (Auto) 61.8 Lymph % (Auto) 26.1 [place] % (Auto) 8.5 Eos % (Auto) 2.4 Baso % (Auto) 0.8 Absolute Neuts (auto) 6.3 Absolute Lymphs (auto) 2.67 Nucleated RBC % 0 Sodium 138 Potassium 3.7 Chloride 103 Carbon Dioxide 29.0 Anion Gap 6 BUN 21 H Creatinine 0.93 Estim Creat Clear Calc 47.41 Est GFR (MDRD) Af Amer 74 Est GFR (MDRD) Non-Af 62 BUN/Creatinine Ratio 22.7 H Glucose 174 H Calcium 9.6 Troponin I High Sens 23 28 B-Natriuretic Peptide 288.1 H Radiography Diagnostic Testing: Clinical Impression(s) from Imaging Studies Chest X-Ray 10/24/23 19:10 IMPRESSION: Normal x-ray examination of the chest. Electronically Signed: Matias Joyner MD at 19:43 EDT , Discharge Plan Triage Chief Complaint: Palpitations ED Provider: Fito Bucio Dx/Rx/DC Orders Instructions: ED AFIB Prescriptions: New metoprolol tartrate 25 mg tablet 25 mg PO BID Qty: 60 0RF No Action montelukast [Singulair] 10 mg tablet 10 mg PO QDAY probiotic 1 cap 1 cap PO DAILY albuterol sulfate [Proventil HFA] 90 mcg/actuation HFA aerosol inhaler 2 puff INHALATION Q4H PRN (Reason: sob) atorvastatin 10 mg tablet 10 mg PO QHS calcium carbonate [Calcium 500] 500 mg calcium (1,250 mg) tablet 500 mg PO QDAY levothyroxine 100 mcg tablet 100 mcg PO QDAY Levemir U-100 Insulin 100 unit/mL solution 20 unit subcut BID famotidine 20 mg tablet 20 mg PO DAILY Orencia 125 mg/mL syringe 125 mg subcut QWEEK losartan 100 mg tablet 100 mg PO DAILY Qty: 90 3RF Alvesco 160 mcg/actuation HFA aerosol inhaler 2 puff INHALATION BID multivitamin Tablet 1 tab PO DAILY cholecalciferol (vitamin D3) [Vitamin D3] 50 mcg (2,000 unit) Capsule 50 mcg PO DAILY Eliquis 5 mg tablet 5 mg PO BID Qty: 180 3RF Primary Care Provider: Magnolia Ortega Referrals: Magnolia Ortega MD [Primary Care Provider] - Disposition Disposition: Home, Self Care
--- NOTE | 2023-10-24 19:10 | RAD_ITS ---
STUDY: X-RAY CHEST REASON FOR EXAM: Female, 83 years old. chest pain TECHNIQUE: Single AP portable view of the chest. COMPARISON: None. FINDINGS: The lungs are clear and expanded. There is no demonstrated pleural abnormality. Normal size heart. Normal mediastinum and luann. Normal visualized pulmonary arteries. Normal visualized aortic arch and descending thoracic aorta. Normal visualized thoracic spine. Normal visualized ribs, clavicles, and shoulders. There is no demonstrated abnormality of the visualized soft tissue structures of the upper abdomen. RAD/Chest 1 View (Portable) IMPRESSION: Normal x-ray examination of the chest. Electronically Signed: Matias Joyner MD at 19:43 EDT ,
[2023-10-24 19:12] LABS: Anion Gap 6 (5-15); BUN 21 mg/dL (7-18); BUN/Creat Ratio 22.7 RATIO (10-20); Calcium,Total 9.6 mg/dL (8.5-10.1); Chloride 103 mmol/L (98-107); Creatinine, Serum 0.93 mg/dL (0.55-1.02); EST Glomerular Filtration Rate 62 mL/min (>60); Est Glom Filt Rate - Afr Amer 74 mL/min (>60); Estimated Creatinine Clearance 47.41 ml/min; Glucose 174 mg/dL (74-106); Potassium 3.7 mmol/L (3.5-5.1); Sodium Level 138 mmol/L (136-145); Troponin-I HS (w/2H Reflex) 23 pg/mL (3.0-54.0)
[2023-10-24 19:14] LABS: BNP,B-Type NATRIURETIC PEPTIDE 288.1 pg/mL (0-100)
[2023-10-24 19:15] VITALS: BP 161/94; PULSE 106; RESP 18; O2SAT 99
[2023-10-24] MEDS: dilTIAZem 25 MG/5 ML Vial IV BOLUS (19:35)
[2023-10-24 20:00] VITALS: BP 155/66; PULSE 84; RESP 23; O2SAT 95
[2023-10-24 20:47] LABS: Reflex Troponin-HS? (from REC) Y
[2023-10-24 21:00] VITALS: BP 169/60; PULSE 89; RESP 16; O2SAT 96
[2023-10-24 21:29] VITALS: BP 156/74; PULSE 75; RESP 14; TEMP 36.7; O2SAT 99
== END 2023-10-24 21:35 | disposition home or self-care (01) ==
PROVIDERS: Emergency Provider Student in an Organized Health Care Education/Training Program; PCP Internal Medicine; Visit Provider Student in an Organized Health Care Education/Training Program
DX: I48.91 Unspecified atrial fibrillation (principal); E11.9 Type 2 diabetes mellitus without complications; G47.33 Obstructive sleep apnea (adult) (pediatric); I10 Essential (primary) hypertension; J45.909 Unspecified asthma, uncomplicated; Z87.891 Personal history of nicotine dependence; Z79.01 Long term (current) use of anticoagulants; Z79.899 Other long term (current) drug therapy; Z86.16 Personal history of COVID-19
CPT/HCPCS: 71045; 80048; 83880; 84484; 85025; 93005; 96374; 99285; J7030; A4216

== ENCOUNTER → 2023-11-05 | Outpatient (CLI) | payer MEDICARE, BC, SELFPAY | END | disposition home or self-care (01) | LOC: PSN 07:25 | PROVIDERS: PCP Internal Medicine; Referring Provider Physician Assistant Medical; Visit Provider Physician Assistant Medical | DX: I48.91 Unspecified atrial fibrillation (principal); I49.3 Ventricular premature depolarization | CPT/HCPCS: 93225; 93226 ==

== ENCOUNTER 2023-11-13 10:00 | Outpatient (RCR) | payer MEDICARE, BC, SELFPAY ==
--- NOTE | 2023-09-25 10:37 | HP.PTEVAL ---
Patient's Visit Information Visit Information Visit Information: RAYNA MORGAN is a 83 year old F referred to Physical Therapy by Dr. Magnolia Ortega MD with a diagnosis of R LEG PAIN. Date of Evaluation: 09/25/23 Physical Therapist: Claudia Simon, PT, Cert MDT Visit Plan Frequency: 2-3x /Week Duration: 4-6 Weeks Plan: R HIP US AT 1.5 W/CM2 100% X 8 MIN. CP OR MH NEEDED. STM AND/OR STICK ROLL OUT ALONG WITH STRETCHING OF IT BAND. LUMBAR STABILIZATION. HS AND CALF STRETCHING. HEP. Subjective Subjective: THIS PATIENT PRESENTS TO PHYSICAL THERAPY WITH C/O PAIN IN HER R HIP AND ALONG THE OUTSIDE OF HER R LEG THAT STARTED ABOUT A MONTH AGO FOR NO APPARENT REASON. IT GETS WORSE WITH PROLONGED SITTING. SHE REPORTS THAT PREDNISONE HELPED A LOT BUT IT IS BURRING MACHINE OPERATOR ALONG THE OUTSIDE OF HER LEG. THE PAIN IS RANGING 3/10 TO 9/10. SHE DENIES ANY PRIOR SURGERY ON THIS LEG BUT REPORTS THAT SHE HAD PAIN IN HER LEFT LEG A FEW MONTHS AGO AND THE NURSE PRACTITIONER GAVE HER A SHOT OF TORADOL THAT HELPED. SHE REPORTS THE ONLY SURGERY SHE HAS HAD IS A HYSTERECTOMY. Objective Objective: THIS PATIENT AMBULATES INDEP'LY INTO PT WITHOUT ANY AD'S WITH A MILD LIMP ON THE R LE. SHE IS ABLE TO INDEP'LY TRANSFER FROM SIT TO STAND WITHOUT UE ASSIST. REBECA LE STRENGTH IS GROSSLY 5/5 WITH MMT'ING EXCEPT R HIP 4-/5 AND L HIP 4/5. CORE STRENGTH IS FAIR. POSTURE: REDUCED LUMBAR LORDOSIS BUT NO RELEVANT LATERAL SHIFT. ROM: TIGHT REBECA LE HS'S, HIP ER'S AND GASTROC-SOLEUS COMPLEX'S. PALPATION. TENDERNESS ALONG REBECA IT BANDS R>L. LUMBAR MVMT LOSS: FLEX - MIN, EXT - JONATHAN, R SG - MOD - INCREASES - NW. L SG - INCREASES - NW. Balance/Special Test Scores Lower Extremity Functional Score: 51 Goals Goal 1:: DECREASE C/O R LE PAIN AND TENDERNESS BY AT LEAST 50% TO EASE ADL'S. Goal Time Frame: 4-6 Weeks Goal 2:: IMPROVE R HIP STRENGTH SYMMETRICAL WITH L. Goal Time Frame: 4-6 Weeks Goal 3:: INCREASE FLEXIBILITY OF R LE TO EASE ADL'S Goal Time Frame: 4-6 Weeks Goal 4:: PATIENT WILL HAVE IMPROVED LEFS SCORE BY AT LEAST 5 POINTS Goal Time Frame: 4-6 Weeks Goal 5:: INDEP HEP Goal Time Frame: 4-6 Weeks Rehabilitation Potential Physical Therapy Diagnosis: R LEG PAIN, STIFFNESS AND WEAKNESS ALONG WITH CORE STIFFNESS AND WEAKNESS. Rehabilitation Potential: Good Anticipated Interventions Patient/Client Instruction: Educate patient on: Condition, Plan of Care and Risk Factors For the Purpose of:: To improve self management Therapeutic Exercise to Include: Strength training, Body mechanics, Postural training, Flexibilty training, Neuromotor development and Dynamic Lumbar Stabilization For the Purpose of:: To decrease pain, To increase ROM, To improve muscle performance and motor function, To increase tolerance to activity/condition/position, To improve ability of physical actions for home/community/work/leisure, To decrease soft tissue restriction and To increase flexibility/ROM Cryotherapy (ice pack, ice massage): Yes Thermo therapy (hot pack): Yes Ultrasound (thermal/non thermal): Yes For the Purpose of:: To decrease pain and To improve nutrient delivery to tissue Text: Thank you for the opportunity to evaluate your patient. For Medicare and Medicare HMO plans, please review the plan of care and approve it. It will need to be FAXED BACK to us at [phone] for Medicare purposes. For Medicare only, by signing this I certify the plan of care. Please let me know if there are questions or concerns regarding this plan of care. Physician Signature: Date:
--- NOTE | 2023-10-25 14:56 | HP.PTREVAL ---
Re-Evaluation Intro: Dr. Magnolia Ortega MD, It has been my pleasure to treat RAYNA MORGAN over the last 10 visits for R LEG PAIN. Please see the progress note below for an update on the physical therapy plan of care! Subjective Subjective: IN ED YESTERDAY FOR AFIB BUT THEY GOT IT UNDER CONTROL AND GOOD NOW. PATIENT REPORTS THIS HAS REALLY HELPED AND HER WALKING IS DEFINATELY BETTER. IT IS [employer] COORDINATOR BUT GETTING BETTER. PATIENT STATES SHE LOVES THE THERAPY AND THIS IS THE LEAST PAIN SHE HAS HAD IN A LONG TIME. SHE STATES SHE HAD A SHOT IN THIS LEG ABOUT A YEAR AGO THAT INITIALLY TOOK THE PAIN AWAY BUT THEN THE PAIN GRADUALLY STARTED COMING BACK AND SHE STARTED LIMPING AND THEN IT GOT REALLY BAD ABOUT A MONTH BEFORE COMING TO PT THIS TIME. SHE WOULD LIKE TO CONTINUE PT TO SEE IF SHE CAN GET THE PAIN TO GO AWAY WITHOUT GETTING ANOTHER SHOT. SHE STATES SHE ISN'T LIMPING ANYMORE AND HER PAIN COMES AND GOES NOW RANGING 0-5/10. PAIN IS PROVOKED BY SITTING MAINLY. Objective Objective/Function: PATIENT WAS SEEN TODAY FOR RE-ASSESSMENT OF PROGRESS TOWARD THE SET PT GOALS AND THE NEED FOR FURTHER PHYSICAL THERAPY VS READINESS FOR DISCHARGE. UPON EXAM TODAY PATIENT DEMO'S DIFFICULTY RISING FROM SITTING AND DIFFICULTY INITIATING GAIT AFTER SITTING BUT THEN HER GAIT SMOOTHES OUT RATHER QUICKLY. SHE IS SLOUCHING IN SITITNG AND REPORTS PROLONGED SITTING TO SEW AT HOME. INSTRUCTED IN USE OF LUMBAR SUPPORT IN SITTING TODAY AND FREQUENT BREAKS FROM SITTING. PATIENT IS A GOOD CANDIDATE TO CONTINUE PT BASED ON PROGRESS MADE AND ROOM FOR FURTHER IMPROVEMENT. REBECA LE STRENGTH IS GROSSLY 5/5 WITH MMT'ING EXCEPT R HIP 4+/5 AND L HIP 5/5. CORE STRENGTH IS FAIR. POSTURE: REDUCED LUMBAR LORDOSIS BUT NO RELEVANT LATERAL SHIFT. ROM: MILD TIGHTNESS REBECA LE HS'S, HIP ER'S AND GASTROC-SOLEUS COMPLEX'S. PALPATION: TENDERNESS ALONG R LATERAL THIGH BUT NOT LEFT TODAY. (REBECA ANKLE TENDERNESS - CHRONIC PER PATIENT REPORT). LUMBAR MVMT LOSS: FLEX - MIN, EXT - MOD, R SG - MOD - NE. L SG - NE. PATIENT DENIES INCREASED PAIN WITH LUMBAR ROM TESTING TODAY WHICH IS AN IMPROVEMENT. FURTHER INSTRUCTION GIVEN TODAY IN PROPER BODY MECHANICS WITH ADLS. Plan Plan Plan: R THIGH HP/CP NEEDED. R IT BAND STM/STICK ROLL OUT NEEDED TURN ATTENTION TO PROGRESSING CORE STRENGTH AND STABILIZATION IN SUPINE AND/OR STANDING. EMPHASIZE GOOD POSTURE AND BODY MECHANICS WITH EX AND ADL'S. D/C HIP STRETCHING/STRENGTHENING TO HEP ABLE. Balance/Gait/Functional tests Balance/Special Test Scores Lower Extremity Functional Score: 56 Goals Goals Goal 1:: DECREASE C/O R LE PAIN AND TENDERNESS BY AT LEAST 50% TO EASE ADL'S. Goal Time Frame: 4-6 Weeks Goal Progress: Progressing Goal 2:: IMPROVE R HIP STRENGTH SYMMETRICAL WITH L. Goal Time Frame: 4-6 Weeks Goal Progress: Progressing Goal 3:: INCREASE FLEXIBILITY OF R LE TO EASE ADL'S Goal Time Frame: 4-6 Weeks Goal Progress: Progressing Goal 4:: PATIENT WILL HAVE IMPROVED LEFS SCORE BY AT LEAST 5 POINTS Goal Time Frame: 4-6 Weeks Goal Progress: Progressing Goal 5:: INDEP HEP Goal Time Frame: 4-6 Weeks Goal Progress: Progressing Anticipated Interventions Anticipated Interventions Patient/Client Instruction: Educate patient on: Condition, Plan of Care and Risk Factors For the Purpose of:: To improve self management Therapeutic Exercise to Include: Strength training, Body mechanics, Postural training, Flexibilty training, Neuromotor development and Dynamic Lumbar Stabilization For the Purpose of:: To decrease pain, To increase ROM, To improve muscle performance and motor function, To increase tolerance to activity/condition/position, To improve ability of physical actions for home/community/work/leisure, To decrease soft tissue restriction and To increase flexibility/ROM Cryotherapy (ice pack, ice massage): Yes Thermo therapy (hot pack): Yes Ultrasound (thermal/non thermal): Yes For the Purpose of:: To decrease pain and To improve nutrient delivery to tissue Re-Evaluation Ending Re-evaluation ending: Please do not hesitate to contact me at [phone] by phone or if you have questions or concerns regarding this new plan of care! Sincerely, Claudia Simon, PT, Cert MDT
--- NOTE | 2023-11-13 10:32 | HP.PTDCSUM ---
Discharge Summary D/C summary: It has been my pleasure to treat RAYNA MORGAN referred by Dr. Magnolia Ortega MD, with the diagnosis of R LEG PAIN for a total of 15 visit(s). Discharge Date: Please see the following information for a summary of their discharge status. Subjective Subjective: PATIENT REPORTS SHE IS GLAD SHE CONTINUED THERAPY. SHE STATES SHE FEELS MORE PREPARED NOW TO CONTINUE ON HER OWN AND SHE IS GOING TO JOIN THE [employer]. SHE STATES SHE KNOWS SHE HAS TO CONTINUE THE EX'S TO MANAGE HER PAIN. SHE STATES SHE DOESN'T FEEL LIKE SHE NEEDS ANOTHER SHOT. SHE STATES SHE DOESN'T HAVE ANY PAIN RIGHT NOW AND THE PAIN IS NO LONGER DAILY. SHE STATES SHE HAS BEEN MORE PHYSICAL DOING THINGS LIKE PLANTING MIKE, TRIMMING A TREE AND KNEELING AND IT HAS BEEN GOOD. Pain R hip: Pain Intensity (Out of 10): 0 Overall Improvement % Improvement: 80 Objective Objective/Function: PATIENT WAS SEEN TODAY FOR RE-ASSESSMENT OF PROGRESS TOWARD THE SET PT GOALS AND THE NEED FOR FURTHER PHYSICAL THERAPY VS READINESS FOR DISCHARGE. UPON EXAM TODAY ALL GOALS HAVE BEEN MET. PATIENT IS INDEP WITH A HEP AND AGREEABLE TO AND APPROPRIATE FOR DISCHARGE. Goals Goal 1:: DECREASE C/O R LE PAIN AND TENDERNESS BY AT LEAST 50% TO EASE ADL'S. Goal Progress: Goal Met Goal 2:: IMPROVE R HIP STRENGTH SYMMETRICAL WITH L. Goal Progress: Goal Met Goal 3:: INCREASE FLEXIBILITY OF R LE TO EASE ADL'S Goal Progress: Goal Met Goal 4:: PATIENT WILL HAVE IMPROVED LEFS SCORE BY AT LEAST 5 POINTS Goal Progress: Goal Met Goal 5:: INDEP HEP Goal Progress: Goal Met Plan Plan: D/C D/C Information d/c sentence: If there are questions or concerns regarding this patient's physical therapy, please feel free to call me at [phone]. Thank you for the referral of this patient. Sincerely, Claudia Simon, PT, Cert MDT Balance/Gait/Functional tests Balance/Special Test Scores Lower Extremity Functional Score: 60 Improvement % Improvement: 80
== END 2023-11-13 10:37 | disposition home or self-care (01) ==
LOC: PT 10:00
PROVIDERS: PCP Internal Medicine; Referring Provider Internal Medicine; Visit Provider Internal Medicine
DX: M79.604 Pain in right leg (principal)
CPT/HCPCS: 97035; 97110; 97140; 97162; 97164

== ENCOUNTER → 2023-12-21 | Outpatient (CLI) | payer MEDICARE, BC, SELFPAY ==
--- NOTE | 2023-12-21 13:01 | ECHOD_ITS ---
Reason For Study: Dyspnea/SOB Procedure This was a 2D Doppler, Color Flow transthoracic echocardiogram. Exam performed in department. Left Ventricle Normal LV size. Left ventricular systolic function is normal. The estimated ejection fraction is 60 %. No regional wall motion abnormalities noted. Right Ventricle Normal RV size. Normal systolic function. Atria Normal left atrium. Normal right atrium. Mitral Valve There is mild to moderate mitral annular calcification. Mild-Moderate (1-2+) eccentric mitral valve insufficiency. Tricuspid Valve Normal tricuspid valve. Moderate (2+) tricuspid valve insufficiency. Pulmonary artery systolic pressure is 60 mmHg. Moderate pulmonary hypertension. Aortic Valve Trisinus/trileaflet aortic valve. Pulmonic Valve Normal pulmonic valve. Great Vessels Normal aortic root. The pulmonary artery is normal size. Normal inferior vena cava. Pericardium/Pleural No pericardial effusion. MMode/2D Measurements & Calculations LVIDd: 3.7 cm IVSd: 0.93 cm Ao root diam: 3.0 cm LVIDs: 2.3 cm LVPWd: 1.00 cm LA dimension: 4.6 cm RVDd: 3.9 cm FS: 37.1 % LAV(MOD-bp): 66.6 ml LA A4 area: 19.5 cm2 RA A4 area: 12.4 cm2 LAV(MOD-bp) Indexed: 36.6 ml/m2 LAV(MOD-sp2): 76.3 ml LAV(MOD-sp4): 55.6 ml Time Measurements MV dec time: 0.19 sec Doppler Measurements & Calculations MV E max godfrey: 129.3 cm/sec Lat Peak E' Godfrey: 5.4 cm/sec Med Peak E' Godfrey: 8.3 cm/sec MV A max godfrey: 120.8 cm/sec E/E' lat: 23.9 E/E' med: 15.5 MV E/A: 1.1 MV V2 max: 180.1 cm/sec MV P1/2t max godfrey: 181.6 cm/sec Ao V2 max: 137.1 cm/sec MV max P.0 mmHg MV P1/2t: 69.3 msec Ao max P.5 mmHg MV V2 mean: 101.9 cm/sec MV dec slope: 767.4 cm/sec2 Ao V2 mean: 92.3 cm/sec MV mean P.9 mmHg MVA(P1/2t): 3.2 cm2 Ao mean P.9 mmHg MV V2 VTI: 36.6 cm Ao V2 VTI: 30.9 cm AV (velocity ratio): 0.61 LV V1 max: 88.2 cm/sec MR max godfrey: 668.1 cm/sec PA V2 max: 98.8 cm/sec LV V1 max P.1 mmHg MR max P.6 mmHg PA max PG (full): 1.6 mmHg LV V1 mean P.7 mmHg MR mean godfrey: 523.3 cm/sec PA V2 mean: 71.0 cm/sec LV V1 mean: 61.7 cm/sec MR mean P.0 mmHg PA mean PG (full): 0.96 mmHg LV V1 VTI: 18.9 cm MR VTI: 218.1 cm TR max godfrey: 368.6 cm/sec TR max P.4 mmHg ECHO/Echo Complete Interpretation Summary Normal LV size. Left ventricular systolic function is normal. The estimated ejection fraction is 60 %. There is mild to moderate mitral annular calcification. Mild-Moderate (1-2+) eccentric mitral valve insufficiency. Pulmonary artery systolic pressure is 60 mmHg. Moderate pulmonary hypertension. Ordering Physician: Laura Aparicio Referring Physician: Laura Aparicio Performed By: Kd Garcia RCS
== END | disposition home or self-care (01) ==
LOC: CVS 12:58
PROVIDERS: PCP Internal Medicine; Referring Provider Physician Assistant Medical; Visit Provider Physician Assistant Medical
DX: G47.33 Obstructive sleep apnea (adult) (pediatric) (principal); I27.29 Other secondary pulmonary hypertension; I10 Essential (primary) hypertension; R60.9 Edema, unspecified
CPT/HCPCS: 93306

== ENCOUNTER → 2024-01-18 | Outpatient (CLI) | payer MEDICARE, BC, SELFPAY ==
--- NOTE | 2024-01-18 17:55 | CT_ITS ---
STUDY: CTA CHEST REASON FOR EXAM: Female, 83 years old. SOB RADIATION DOSAGE (If Supplied By Facility): CTDIvol = ( 9.87 ) mGy, DLP = ( 355.18 ) mGycm TECHNIQUE: The examination was performed with the intravenous administration of IV 100mL Isovue-370. Post-processing of the angiographic images was performed, with multiplanar reformation and 3D reconstruction. Individualized dose optimization techniques were used for this CT. COMPARISON: 01/04/2018 FINDINGS: Normal enhancement of the main pulmonary artery and right and left pulmonary arteries. Normal enhancement of the bilateral peripheral pulmonary arteries. There is no demonstrated pulmonary embolism. Normal thoracic aorta and visualized great vessels. There is no demonstrated aortic dissection. Normal heart and pericardium. Normal mediastinum. Normal hilar regions. Normal visualized trachea and bronchi. The lungs are well expanded. Mild bilateral apical scarring. No noncalcified nodule or mass. Normal pleura. Normal chest wall structures. Normal osseous structures. Small hepatic cysts. CT/CTA Chest W/WO Contrast IMPRESSION: Normal CTA chest examination, without a demonstrated pulmonary embolism or arterial dissection. Electronically Signed: Matias Joyner MD at 8:43 EDT ,
[2024-01-18 18:20] LABS: CREATININE FINGERSTICK < 1.0 mg/dL (0.55-1.02); EGFR FINGERSTICK > 60.0000 mL/min (>60)
== END | disposition home or self-care (01) ==
LOC: CT 17:55
PROVIDERS: PCP Internal Medicine; Referring Provider Physician Assistant Medical; Visit Provider Physician Assistant Medical
DX: Z01.812 Encounter for preprocedural laboratory examination (principal); R06.02 Shortness of breath
CPT/HCPCS: 71275; Q9967

== ENCOUNTER → 2024-01-25 | Outpatient (CLI) | payer MEDICARE, BC, SELFPAY ==
[2024-01-25 10:42] LABS: BNP,B-Type NATRIURETIC PEPTIDE 48.4 pg/mL (0-100)
== END | disposition home or self-care (01) ==
LOC: MTLAB 09:08
PROVIDERS: PCP Internal Medicine; Referring Provider Physician Assistant Medical; Visit Provider Physician Assistant Medical
DX: R06.02 Shortness of breath (principal)
CPT/HCPCS: 36415; 83880

== ENCOUNTER → 2024-03-03 | Outpatient (CLI) | payer MEDICARE, BC, SELFPAY ==
[2024-03-03 12:22] LABS: Bacteria 0 SEEN /hpf (None Seen); Mucous, Urine 0 SEEN /hpf (<or=2+); Red Blood Cells-Urine 0 SEEN /hpf (0-5); White Blood Cells 0 SEEN /hpf (0-5)
[2024-03-03 12:28] LABS: Glucose, Dipstick 1000 mg/dl (Normal); Ketone-Dipstick Negative (Negative); Leukocyte Esterase-Dipstick 100 /ul (Negative); Nitrite-Dipstick Negative (Negative); Occult Blood-Urine 10 /ul (Negative); Protein-Dipstick 15 mg/dl (Negative); Urine Bilirubin Dipstick Negative (Negative); Urine Urobilinogen Normal (Normal)
[2024-03-03 12:29] LABS: Color, Urine YELLOW (Yellow); Urine Clarity Clear (Clear)
[2024-03-03 12:34] LABS: Squamous Epithelial Cells - UA 5-10 SEEN /hpf (5-10)
== END | disposition home or self-care (01) ==
LOC: MTLAB 10:07
PROVIDERS: PCP Internal Medicine; Referring Provider Internal Medicine Endocrinology, Diabetes & Metabolism; Visit Provider Internal Medicine Endocrinology, Diabetes & Metabolism
DX: R30.0 Dysuria (principal)
CPT/HCPCS: 81001; 87086; 87088

== ENCOUNTER → 2024-03-21 | Outpatient (CLI) | payer MEDICARE, BC, SELFPAY ==
[2024-03-21 18:55] LABS: Anion Gap 9 (5-15); BUN 18 mg/dL (7-18); BUN/Creat Ratio 19.5 RATIO (10-20); Calcium,Total 9.8 mg/dL (8.5-10.1); Chloride 102 mmol/L (98-107); Creatinine, Serum 0.92 mg/dL (0.55-1.02); EST Glomerular Filtration Rate 62 mL/min (>60); Est Glom Filt Rate - Afr Amer 75 mL/min (>60); Glucose 110 mg/dL (74-106); Potassium 4.5 mmol/L (3.5-5.1); Sodium Level 135 mmol/L (136-145)
== END | disposition home or self-care (01) ==
LOC: MTLAB 15:13
PROVIDERS: PCP Internal Medicine; Referring Provider Internal Medicine Endocrinology, Diabetes & Metabolism; Visit Provider Internal Medicine Endocrinology, Diabetes & Metabolism
DX: I10 Essential (primary) hypertension (principal)
CPT/HCPCS: 36415; 80048

== ENCOUNTER → 2024-06-30 | Outpatient (CLI) | payer MEDICARE, BC, SELFPAY ==
--- NOTE | 2024-06-30 14:08 | BI_ITS ---
MAMMOGRAPHY - BILATERAL SCREENING 3-D TOMOSYNTHESIS REASON FOR EXAM: Female, 84 years old. yearly PERTINENT HISTORY: No significant family history. TECHNIQUE: 2-D mammograms and 3-D Tomosynthesis of the breast (s) were performed. CAD was performed. COMPARISON: 06/29/2023 FINDINGS: The breast composition is composed of scattered fibroglandular density. Scattered benign calcifications are seen. No dense spiculated masses or suspicious microcalcifications are identified. No architectural distortion is identified. There is no skin thickening or retraction. There has been no significant change since the prior study. BI/SCRN MAMM (CAD)W/ANAY BILAT IMPRESSION: No mammographic signs of malignancy. Routine yearly mammograms recommended. ASSESSMENT CATEGORY: BIRADS Category 1: Negative. A letter regarding these results will be sent to the patient by the facility within 30 days. FOLLOW UP RECOMMENDATION: Yearly follow up mammogram recommended. (A) Approximately 10% of breast cancers are not detected by mammography. A normal mammogram should not delay biopsy of a clinically suspicious abnormality. Electronically Signed: Matias Joyner MD at 18:01 EST ,
== END | disposition home or self-care (01) ==
LOC: OPBI 14:08
PROVIDERS: PCP Internal Medicine; Referring Provider Internal Medicine; Visit Provider Internal Medicine
DX: Z12.31 Encounter for screening mammogram for malignant neoplasm of breast (principal)
CPT/HCPCS: 77063; 77067

== ENCOUNTER 2024-07-23 10:30 | Outpatient (RCR) | payer MEDICARE, BC, SELFPAY ==
--- NOTE | 2024-07-14 14:58 | HP.PTEVAL_ITS ---
Patient's Visit Information Visit Information Visit Information: RAYNA MORGAN is a 84 year old F referred to Physical Therapy by Dr. Magnolia Ortega MD with a diagnosis of R BPPV. Date of Evaluation: 07/14/24 Physical Therapist: WALLACE Barr Visit Plan Frequency: 1-2x /Week Duration: 4 Weeks Plan: 1-2X/ week for 4 weeks for testing and treatment for R BPPV and possible testing of balance Subjective Subjective: Dr Cardoso said she has positional vertigo. He told her lay flat for 5 days and then lay on one side for 5 days. She went to Dr Ortega and she ordered PT because that did not help. She has a follow up with Dr Cardoso on Sunday. If she moves real fast or get up really fast. She sits and waits when gets up first thing in the morning. She gets dizzy a couple times to the R. She does sleep on the R side. She has been trying to sleep flat because of the cPAP. She reports that her balance is good. She is not dizzy right now and was not dizzy when she stood up in the waiting room. Objective Objective: + R Hallpike for dizziness and nystagmus that lasted approx 30 secon ds. Treated with R EPLY (had a big dizzy spell when sitting up from the EPLY but subsided quickly) Re-tested R Hallpike and was positive for torsional nystagmus that lasted approx 15 secconds. Treated with R Eply Re-tested R Hallpike and was positive for torsional nystagmus that lasted approx 10 seconds with very slow beat. Balance/Special Test Scores Dizziness Score: 12 Goals Goal 1:: I HEP Goal Time Frame: 4-6 Weeks Goal 2:: Abolish dizziness Goal Time Frame: 2-4 Weeks Goal 3:: Test FGA if pt feels balance is off Goal Time Frame: 2-4 Weeks Rehabilitation Potential Rehabilitation Potential: Good Anticipated Interventions Patient/Client Instruction: Educate patient on: Condition and Plan of Care For the Purpose of:: To improve ability to perform ADL's, To increase tolerance to activity/condition/position, To improve performance and independence with ADL's, To improve ability of physical actions for home/community/work/leisure, To improve gait and locomotor functions, To improve balance and To improve safety with gait Therapeutic Exercise to Include: Strength training, Balance training, Postural training and Gait and locomotor training For the Purpose of:: To improve nutrient delivery to tissue, To improve performance and independence with ADL's, To improve gait and locomotor functions, To increase flexibility/ROM and To improve safety with gait Functional Training to Include: Gait training For the Purpose of:: To improve gait and locomotor functions Text: Thank you for the opportunity to evaluate your patient. For Medicare and Medicare HMO plans, please review the plan of care and approve it. It will need to be FAXED BACK to us at [phone] for Medicare purposes. For Medicare only, by signing this I certify the plan of care. Please let me know if there are questions or concerns regarding this plan of care. Physician Signature: Date:
--- NOTE | 2024-07-23 10:54 | HP.PTDCSUM ---
Discharge Summary D/C summary: It has been my pleasure to treat RAYNA MORGAN referred by Dr. Magnolia Ortega MD, with the diagnosis of R BPPV for a total of 2 visit(s). Discharge Date: 07/23/24 Please see the following information for a summary of their discharge status. Subjective Subjective: Pt reports that she talked to Dr Cardoso and she told him that it was gone but he said that it could come back. She is not having any trouble with dizziness rolling to the right side. She feels that her balance might still be off if she turns really quick and she feels it is because she is older. Pt reports that she feels back to baseline. Overall Improvement % Improvement: 100 Objective Objective/Function: -R Hallpike for dizziness or nystagmus Smooth pursuit vertical and horizontal in sitting X 30 sec each with no dizziness FGA: 26 Goals Goal 1:: I HEP Goal Progress: Goal Met Goal 2:: Abolish dizziness Goal Progress: Goal Met Goal 3:: Test FGA if pt feels balance is off Goal Progress: Goal Met Plan Plan: 1-2X/ week for 4 weeks for testing and treatment for R BPPV and possible testing of balance D/C Information Discharge Comments: DC PT d/c sentence: If there are questions or concerns regarding this patient's physical therapy, please feel free to call me at [phone]. Thank you for the referral of this patient. Sincerely, Yoon Mojica, MPT Balance/Gait/Functional tests Balance/Special Test Scores Functional Gait Assessment Score: 26 % Disability: 13.3400 Dizziness Score: 10 Improvement % Improvement: 100
== END 2024-07-23 19:00 | disposition home or self-care (01) ==
LOC: PT 10:30
PROVIDERS: PCP Internal Medicine; Referring Provider Internal Medicine; Visit Provider Internal Medicine
DX: H81.11 Benign paroxysmal vertigo, right ear (principal)
CPT/HCPCS: 97161; 97530

== ENCOUNTER → 2025-06-13 | Outpatient (CLI) | payer MEDICARE, BC, SELFPAY ==
--- NOTE | 2025-06-13 09:40 | CT_ITS ---
PROCEDURE: SINUS/FACIAL BONE 06/13/2025 REASON FOR EXAM: CHRONIC SINUSITIS TECHNIQUE: Procedure Code: CTSI Modality: CT Procedure: SINUS/FACIAL BONE Coronal and Sagittal reconstruction series were provided. One or more dose reduction techniques were used (e.g., Automated exposure control, adjustment of the mA and/or kV according to patient size, use of iterative reconstruction technique). RADIATION DOSE SUMMARY: CTDlvol: 33.06 mGy DLP: 776 mGycm COMPARISON: None FINDINGS: Frontal: Frontal sinuses are clear. Ethmoid: Partial opacification of the ethmoid sinuses. Sphenoid: Small air-fluid level seen in the posterior dependent portion of the right sphenoid sinus. Maxillary: Opacification of the left maxillary sinus. Partial opacification of the left maxillary sinus. Compromise of the ostiomeatal complex bilaterally due to mucosal hypertrophy. Turbinates: Unremarkable Nasal Septum: Nasal septal deviation towards the right side of the midline. Mastoids/Middle Ears: Clear. CT/Sinus/Facial Bone IMPRESSION: Ethmoid and maxillary sinusitis as described. Small air-fluid level in the pos terior dependent portion of the right sphenoid sinus. Reading Location: [place] [id number]
== END | disposition home or self-care (01) ==
LOC: CT 09:37
PROVIDERS: PCP Internal Medicine
DX: J32.8 Other chronic sinusitis (principal)
CPT/HCPCS: 70486

== ENCOUNTER → 2025-07-08 | Outpatient (CLI) | payer MEDICARE, BC, SELFPAY ==
--- NOTE | 2025-07-08 14:55 | BI_ITS ---
EXAM: SCRN MAMM (CAD)W/ANAY BILAT DATE: 07/08/2025 CLINICAL HISTORY: F, Age 85 y/o , SCREENING Routine screening TECHNIQUE: Procedure Code: [id number] Modality: MG Procedure: SCRN MAMM (CAD)W/ANAY BILAT COMPARISON: Prior exam(s) dated 06/30/2024 FINDINGS: TISSUE DENSITY: There are scattered areas of fibroglandular density. Bilateral Breast Mammographic Findings: No significant masses, calcifications or other abnormalities are identified. No interval change BI/SCRN MAMM (CAD)W/ANAY BILAT IMPRESSION: Stable screening mammogram, no suspicious findings OVERALL FINAL ASSESSMENT BI-RADS 1: NEGATIVE. RECOMMENDATION: Routine annual follow-up in 1 Year Additional Recommendation none A letter with findings and recommendations will be mailed to the patient. Reading Location: [id number]
== END | disposition home or self-care (01) ==
LOC: OPBI 14:54
PROVIDERS: PCP Internal Medicine; Referring Provider Internal Medicine; Visit Provider Internal Medicine
DX: Z12.31 Encounter for screening mammogram for malignant neoplasm of breast (principal)
CPT/HCPCS: 77063; 77067